=== PATIENT | male | born 1950 | race African-American/Black ===

== ENCOUNTER 2016-07-16 17:20 | Inpatient (IN) | payer MEDICARE ==
[~2016-07-16] VITALS: Ht 190.5 cm; Wt 95.3 kg
[~2016-07-16 17:20] MED LIST: ASPI-482 PO; ATEN25TA PO; ATOR40TA59 PO; DORZ10DR7 EACHEYE; HYDR-971 PO; HYDR25TA9 PO; LATA2.5D3 EACHEYE; MULT1TAB97 PO; SIMV5TAB PO; VARE1TAB5 PO
--- NOTE | 2016-07-16 18:00 | RAD ---
PROCEDURE CT head without intravenous contrast. HISTORY Right arm tingling and weakness. TECHNIQUE Axial images are obtained of the head from the skull base through the vertex without IV contrast Exposure: One or more of the following individualized dose reduction techniques were utilized for this examination: 1. Automated exposure control. 2. Adjustment of the mA and/or kV according to patient size. 3. Use of iterative reconstruction technique. COMPARISON None. FINDINGS The ventricles are appropriate in size, shape, and location for the patient's age.No obvious intracranial mass, mass-effect, midline shift, hemorrhage or obvious acute infarction is identified.Basilar cisterns are patent. Bone windows demonstrate no acute calvarial abnormality.The visualized paranasal sinuses appear clear. IMPRESSION No acute intracranial process. Please note that CT can be relatively insensitive to acute ischemic infarction for up to 24 hours after symptom onset. Electronically signed by: Ricardo Bowie MD (Jul 16, 2016 17:59:44)
[2016-07-16] MEDS ORDERED: ASPIRIN ENTERIC COATED 325 MG TABLET.DR. PO ONE (18:15)
--- NOTE | 2016-07-16 18:19 | PHYS DOC ---
Past Medical History Past Medical History: Diabetes-Type II, Glaucoma, Hypertension Past Surgical History: No Surgical History Smoking: Quit Greater Than 1 Year Alcohol Use: None Drug Use: None Adult General HPI HPI Patient is a 66 year old male who presents with right upper extremity weakness that started about 4:30 this evening when he got home from work. He noted severe weakness throughout his in entirety of his upper extremity. This lasted minutes, and then began to resolve. He currently has weakness mainly in his hand and forearm. He denies sensory changes. He denies headache, vision changes , chest pain, palpitations, dyspnea, fever or chills, numbness, tingling, speech changes, difficulty swallowing. He denies dizziness. Review of Systems Review of Systems Constitutional: Denies fever or chills [] Eyes: Denies change in visual acuity, redness, or eye pain [] HENT: Denies nasal congestion or sore throat [] Respiratory: Denies cough or shortness of breath [] Cardiovascular: No additional information not addressed in HPI [] GI: Denies abdominal pain, nausea, vomiting, bloody stools or diarrhea [] : Denies dysuria or hematuria [] Musculoskeletal: Denies back pain or joint pain [] Integument: Denies rash or skin lesions [] Neurologic: Denies headache or sensory changes [] Endocrine: Denies polyuria or polydipsia [] Current Medications Current Medications Current Medications Medications (Trade) Dose Ordered Sig/[facility] Start Time Stop Time Status Last Admin Dose Admin Aspirin (Ecotrin) 325 mg 1X ONCE 07/16/16 18:15 07/16/16 18:16 DC 07/16/16 18:24 325 MG Allergies Allergies Allergies Coded Allergies Type Severity Reaction Last Updated Verified No Known Drug Allergies 05/13/15 No Physical Exam Physical Exam Constitutional: Well developed, well nourished, no acute distress, non-toxic appearance. [] HENT: Normocephalic, atraumatic, bilateral external ears normal, oropharynx moist, no oral exudates, nose normal. [] Eyes: PERRLA, EOMI, conjunctiva normal, no discharge. [] Neck: Normal range of motion, supple. [] Cardiovascular:Heart rate regular rhythm [] Lungs & Thorax: Bilateral breath sounds clear to auscultation [] Abdomen: Bowel sounds normal, soft, no tenderness. [] Skin: Warm, dry, no erythema, no rash. [] Back: Normal range of motion. [] Extremities: No tenderness, ROM intact, no edema. [] Neurologic: Alert and oriented X 3, normal motor function other than mild weakness in RUE compared to LUE, normal sensory function, no focal deficits noted, cranial nerves II through XII intact, no extremity drift. [] Psychologic: Affect normal, judgement normal, mood normal. [] Current Patient Data Vital Signs Vital Signs Date Time Temp Pulse Resp B/P Pulse Ox O2 Delivery O2 Flow Rate FiO2 07/16/16 17:38 97.8 61 18 149/81 98 Room Air 97.8 Lab Values Laboratory Tests Test 07/16/16 17:58 White Blood Count 4.6x10^3/uL (4.0-11.0) Red Blood Count 4.69x10^6/uL (4.30-5.70) Hemoglobin 12.9g/dL (13.0-17.5) L Hematocrit 39.3% (39.0-53.0) Mean Corpuscular Volume 84fL (79-100) Mean Corpuscular Hemoglobin 28pg (25-35) Mean Corpuscular Hemoglobin Concent 33g/dL (31-37) Red Cell Distribution Width 14.7% (11.5-14.5) H Platelet Count 223x10^3/uL (140-400) Neutrophils (%) (Auto) 54% (31-73) Lymphocytes (%) (Auto) 31% (24-48) Monocytes (%) (Auto) 12% (0-9) H Eosinophils (%) (Auto) 3% (0-3) Basophils (%) (Auto) 1% (0-3) Neutrophils # (Auto) 2.5x10^3uL (1.8-7.7) Lymphocytes # (Auto) 1.4x10^3/uL (1.0-4.8) Monocytes # (Auto) 0.5x10^3/uL (0.0-1.1) Eosinophils # (Auto) 0.1x10^3/uL (0.0-0.7) Basophils # (Auto) 0.0x10^3/uL (0.0-0.2) Sodium Level 143mmol/L (136-145) Potassium Level 3.2mmol/L (3.5-5.1) L Chloride Level 105mmol/L (98-107) Carbon Dioxide Level 27mmol/L (21-32) Anion Gap 11 (6-14) Blood Urea Nitrogen 15mg/dL (8-26) Creatinine 0.9mg/dL (0.7-1.3) Estimated GFR (Cockcroft-Gault) 102.5 Glucose Level 106mg/dL (70-99) H Calcium Level 9.3mg/dL (8.5-10.1) Laboratory Tests 07/16/16 17:58 Laboratory Tests 07/16/16 17:58 EKG EKG EKG as interpreted by me as normal sinus rhythm, rate 58, no ST-T changes, normal intervals, no ectopy Radiology/Procedures Radiology/Procedures Head CT without contrast IMPRESSION No acute intracranial process. Please note that CT can be relatively insensitive to acute ischemic infarction for up to 24 hours after symptom onset. Electronically signed by: Ricardo Bowie MD (Jul 16, 2016 17:59:44) Course & Med Decision Making Course & Med Decision Making Pertinent Labs and Imaging studies reviewed. (See chart for details) Exam and history are concerning for stroke versus TIA. NIHSS of 0. Will admit for further workup. Aspirin given. He is not a TPA candidate due to improvement of his symptoms during his short timeline. Discussed case with Dr. Spears, who will admit. Discussed case with Dr. Tovar, neurology, who recommends starting on Plavix. Dragon Disclaimer Dragon Disclaimer This electronic medical record was generated, in whole or in part, using a voice recognition dictation system. Departure Departure Impression: Primary Impression: Right arm weakness Disposition: ADMITTED INPATIENT Condition: STABLE Referrals: KEVON MACIEL (PCP) Nel MURRAY MD Jul 16, 2016 18:19
[2016-07-16 18:22] LABS: BASO % 1 % (0-3); EOS % 3 % (0-3); HEMATOCRIT 39.3 % (39.0-53.0); HEMOGLOBIN 12.9 g/dL (13.0-17.5); LYMPH # 1.4 x10^3/uL (1.0-4.8); LYMPH % 31 % (24-48); MEAN CORPUSCULAR HEMOGLOBIN 28 pg (25-35); MEAN CORPUSCULAR HGB CONC 33 g/dL (31-37); MEAN CORPUSCULAR VOLUME 84 fL (79-100); MONO % 12 % (0-9); NEUT % 54 % (31-73); PLATELET COUNT 223 x10^3/uL (140-400); RED BLOOD COUNT 4.69 x10^6/uL (4.30-5.70); RED CELL DISTRIBUTION WIDTH 14.7 % (11.5-14.5); WHITE BLOOD COUNT 4.6 x10^3/uL (4.0-11.0)
[2016-07-16 18:29] LABS: CALCIUM 9.3 mg/dL (8.5-10.1); CREATININE 0.9 mg/dL (0.7-1.3); GFR 102.5; POTASSIUM 3.2 mmol/L (3.5-5.1)
[2016-07-16] MEDS ORDERED: ONDANSETRON PF 4 MG/2 ML VIAL. IV PRN ×2 (18:45→19:15)
[2016-07-16] MEDS ORDERED: ACETAMINOPHEN 325 MG TABLET. PO PRN ×2 (18:45→19:15)
[2016-07-16] MEDS ORDERED: CLOPIDOGREL BISULFATE 75 MG TABLET PO ONE (19:00)
[2016-07-16] MEDS ORDERED: hydrALAZINE 20 MG/ML VIAL. IVP PRN (19:15)
[2016-07-16] MEDS ORDERED: HYDROCODONE/APAP 5/325MG TABLET. PO PRN (19:15)
[2016-07-16] MEDS ORDERED: DEXTROSE 50% 25 GM / 50ML DISP.SYRIN. IV PRN (19:15)
--- NOTE | 2016-07-16 19:17 | PDOC1 ---
History and Physical Date of Admission Date of Admission 07/16/16 Identification/Chief Complaint Chief Complaint right arm weakness Problems: Source Source: Chart review, Patient History of Present Illness History of Present Illness HPI Patient is a 66 year old male who presents with right upper extremity weakness that started about 4:30 this evening when he got home from work. he had little nausea before. He was taking a shower at 4.30pm, feels right arm weakness, especially right hand. He denies other neurologic symptoms, no vision hearing change, no numbness or headache. Now strength is better, but right hand still weak. head CT neg. takes baby asa Past Medical History Cardiovascular: HTN Endocrine: Diabetes Past Surgical History Past Surgical History: No pertinent history Family History Family History mom had stroke Social History Smoke: Quit ALCOHOL: social Drugs: None Current Problem List Problem List Problems Medical Problems: (1) Right arm weakness Status: Acute Current Medications Current Medications Current Medications Medications (Trade) Dose Ordered Sig/[facility] Start Time Stop Time Status Last Admin Dose Admin Acetaminophen (Tylenol) 650 mg PRN Q4HRS PRN 07/16/16 18:45 07/17/16 18:44 Aspirin (Ecotrin) 325 mg 1X ONCE 07/16/16 18:15 07/16/16 18:16 DC 07/16/16 18:24 325 MG Clopidogrel Bisulfate (Plavix) 75 mg 1X ONCE 07/16/16 19:00 07/16/16 19:01 DC 07/16/16 19:06 75 MG Ondansetron HCl (Zofran) 4 mg PRN Q8HRS PRN 07/16/16 18:45 07/17/16 18:44 Allergies Allergies Allergies Coded Allergies Type Severity Reaction Last Updated Verified No Known Drug Allergies 05/13/15 No ROS Review of System CONSTITUTIONAL: No fever or chills EYES: No recent changes SKIN: No rash or itching CARDIOVASCULAR: No chest pain, syncope, palpitations, or edema RESPIRATORY: No SOB or cough GASTROINTESTINAL: No nausea, vomiting or abdominal pain NEUROLOGICAL: No headaches or weakness ENDOCRINE: No cold or heat intolerance GENITOURINARY: No urgency or frequency of urination MUSCULOSKELETAL: No back pain or joint pain LYMPHATICS: No enlarged lymph nodes PSYCHIATRIC: No anxiety or depression Physical Exam Physical Exam GEN.: No apparent distress. Alert and oriented. HEENT: Head is normocephalic, atraumatic NECK: Supple. LUNGS: Clear to auscultation. HEART: RRR, S1, S2 present. Peripheral pulses intact ABDOMEN: Soft, nontender. Positive bowel sounds. EXTREMITIES: Without any cyanosis. right hand strength 3/5 NEUROLOGIC: Normal speech, normal tone PSYCHIATRIC: Normal affect, normal mood. SKIN: No ulcerations Vitals Vitals Vital Signs Date Time Temp Pulse Resp B/P Pulse Ox O2 Delivery O2 Flow Rate FiO2 07/16/16 18:45 64 18 146/82 100 Room Air 07/16/16 17:38 97.8 97.8 Labs Labs Laboratory Tests Test 07/16/16 17:58 White Blood Count 4.6x10^3/uL (4.0-11.0) Red Blood Count 4.69x10^6/uL (4.30-5.70) Hemoglobin 12.9g/dL (13.0-17.5) Hematocrit 39.3% (39.0-53.0) Mean Corpuscular Volume 84fL (79-100) Mean Corpuscular Hemoglobin 28pg (25-35) Mean Corpuscular Hemoglobin Concent 33g/dL (31-37) Red Cell Distribution Width 14.7% (11.5-14.5) Platelet Count 223x10^3/uL (140-400) Neutrophils (%) (Auto) 54% (31-73) Lymphocytes (%) (Auto) 31% (24-48) Monocytes (%) (Auto) 12% (0-9) Eosinophils (%) (Auto) 3% (0-3) Basophils (%) (Auto) 1% (0-3) Neutrophils # (Auto) 2.5x10^3uL (1.8-7.7) Lymphocytes # (Auto) 1.4x10^3/uL (1.0-4.8) Monocytes # (Auto) 0.5x10^3/uL (0.0-1.1) Eosinophils # (Auto) 0.1x10^3/uL (0.0-0.7) Basophils # (Auto) 0.0x10^3/uL (0.0-0.2) Sodium Level 143mmol/L (136-145) Potassium Level 3.2mmol/L (3.5-5.1) Chloride Level 105mmol/L (98-107) Carbon Dioxide Level 27mmol/L (21-32) Anion Gap 11 (6-14) Blood Urea Nitrogen 15mg/dL (8-26) Creatinine 0.9mg/dL (0.7-1.3) Estimated GFR (Cockcroft-Gault) 102.5 Glucose Level 106mg/dL (70-99) Calcium Level 9.3mg/dL (8.5-10.1) Laboratory Tests Test 07/16/16 17:58 White Blood Count 4.6x10^3/uL (4.0-11.0) Red Blood Count 4.69x10^6/uL (4.30-5.70) Hemoglobin 12.9g/dL (13.0-17.5) Hematocrit 39.3% (39.0-53.0) Mean Corpuscular Volume 84fL (79-100) Mean Corpuscular Hemoglobin 28pg (25-35) Mean Corpuscular Hemoglobin Concent 33g/dL (31-37) Red Cell Distribution Width 14.7% (11.5-14.5) Platelet Count 223x10^3/uL (140-400) Neutrophils (%) (Auto) 54% (31-73) Lymphocytes (%) (Auto) 31% (24-48) Monocytes (%) (Auto) 12% (0-9) Eosinophils (%) (Auto) 3% (0-3) Basophils (%) (Auto) 1% (0-3) Neutrophils # (Auto) 2.5x10^3uL (1.8-7.7) Lymphocytes # (Auto) 1.4x10^3/uL (1.0-4.8) Monocytes # (Auto) 0.5x10^3/uL (0.0-1.1) Eosinophils # (Auto) 0.1x10^3/uL (0.0-0.7) Basophils # (Auto) 0.0x10^3/uL (0.0-0.2) Sodium Level 143mmol/L (136-145) Potassium Level 3.2mmol/L (3.5-5.1) Chloride Level 105mmol/L (98-107) Carbon Dioxide Level 27mmol/L (21-32) Anion Gap 11 (6-14) Blood Urea Nitrogen 15mg/dL (8-26) Creatinine 0.9mg/dL (0.7-1.3) Estimated GFR (Cockcroft-Gault) 102.5 Glucose Level 106mg/dL (70-99) Calcium Level 9.3mg/dL (8.5-10.1) VTE Prophylaxis Ordered VTE Prophylaxis Devices: Yes VTE Pharmacological Prophylaxi: Yes Assessment/Plan Assessment/Plan 1. right arm/hand weakness, likely 2/2 stroke 2. dm2 3. htn 4. hld 5. glaucoma plan: 1. neuro consult 2. plavix check lipid panel home meds cont 3. brain mri, carotid US, echo OT dvt ppx check hba1c SSI TERESA BERNABE MD Jul 16, 2016 19:16
[2016-07-16] MEDS ORDERED: METF500T4 PO (20:13)
[2016-07-16] MEDS ORDERED: LEVO50TA5 PO (20:13)
[2016-07-16] MEDS ORDERED: LEVO100T5 PO (20:15)
[2016-07-16 20:47] VITALS: BP 141/83
[2016-07-16] MEDS: INSULIN ASPART 300 UNITS/3 ML INSULN.PEN SQ SCH (21:00)
--- NOTE | 2016-07-16 21:46 | PDOC2 ---
NEUROLOGY CONSULT Date of Admission Date of Admission Full Report Dictated DATE: 07/16/16 TIME: 21:43 Current Medications Current Medications Current Medications Aspirin (Ecotrin) 325 mg 1X ONCE PO Last administered on 07/16/16t 18:24; Start 07/16/16 at 18:15; Stop 07/16/16 at 18:16; Status DC Clopidogrel Bisulfate (Plavix) 75 mg 1X ONCE PO Last administered on t 19:06; Start 07/16/16 at 19:00; Stop 07/16/16 at 19:01; Status DC Ondansetron HCl (Zofran) 4 mg PRN Q8HRS PRN IV NAUSEA/VOMITING; Start 07/16/16 at 18:45; Stop 07/16/16 at 19:17; Status DC Acetaminophen (Tylenol) 650 mg PRN Q4HRS PRN PO FEVER; Start 07/16/16 at 18:45 ; Stop 07/16/16 at 19:17; Status DC Atenolol (Tenormin) 25 mg DAILY PO ; Start 07/17/16 at 09:00 Atorvastatin Calcium (Lipitor) 40 mg QHS PO ; Start 07/16/16 at 21:00 Dorzolamide/ Timolol (Cosopt) 1 drop BID OU ; Start 07/16/16 at 21:00 Hydrochlorothiazide (Hydrodiuril) 25 mg DAILY PO ; Start 07/17/16 at 09:00 Acetaminophen/ Hydrocodone Bitart (Lortab 5/325) 1 tab PRN Q6HRS PRN PO PAIN; Start 07/16/16 at 19:15 Latanoprost (Xalatan) 1 drop QHS OU ; Start 07/16/16 at 21:00 Multivitamins/ Calcium (Thera M Plus) 1 tab DAILY PO ; Start 07/17/16 at 09:00 Clopidogrel Bisulfate (Plavix) 75 mg DAILYWBKFT PO ; Start 07/17/16 at 08:00 Acetaminophen (Tylenol) 650 mg PRN Q6HRS PRN PO MILD PAIN / TEMP; Start at 19:15 Ondansetron HCl (Zofran) 4 mg PRN Q6HRS PRN IV NAUSEA/VOMITING; Start 07/16/16 at 19:15 Hydralazine HCl (Apresoline) 10 mg PRN Q4HRS PRN IVP ELEVATED BP, SEE COMMENTS ; Start 07/16/16 at 19:15 Insulin Aspart (Novolog) 0-9 UNITS QIDACHS SQ ; Start 07/16/16 at 21:00 Dextrose 12.5 gm PRN Q15MIN PRN IV SEE COMMENTS; Start 07/16/16 at 19:15 Enoxaparin Sodium (Lovenox 40mg Syringe) 40 mg Q24H SQ ; Start 07/16/16 at 21:00 Active Scripts Active [place] 5-325 Tablet (Acetaminophen/Hydrocodone Bitart) 1 Each Tablet 1 Tab PO PRN Q6HRS PRN Reported Levothyroxine Sodium 100 Mcg Tablet 1 Tab PO DAILY Metformin Hcl 500 Mg Tablet 1 Tab PO BID Latanoprost 2.5 Ml Drops 1 Drop EACHEYE QHS Dorzolamide-Timolol Eye Drops (Dorzolamide Hcl/Timolol Maleat) 10 Ml Drops 1 Drop EACHEYE BID Atorvastatin Calcium 40 Mg Tablet 1 Tab PO DAILY Aspir 81 (Aspirin) 81 Mg Tablet. 1 Tab PO DAILY Daily Multiple Vitamin (Multivitamin) 1 Each Tablet 1 Each PO DAILY Hydrochlorothiazide Tablet (Hydrochlorothiazide) 25 Mg Tablet 25 Mg PO DAILY Atenolol 25 Mg Tablet 25 Mg PO DAILY Allergies Allergies: Coded Allergies: No Known Drug Allergies (Unverified , 05/13/15) Vitals VITALS Vital Signs Date Time Temp Pulse Resp B/P Pulse Ox O2 Delivery O2 Flow Rate FiO2 07/16/16 20:47 96.3 63 18 141/83 Room Air 96.3 07/16/16 18:45 100 Labs Labs Laboratory Tests Test 07/16/16 17:58 07/16/16 20:42 White Blood Count 4.6x10^3/uL (4.0-11.0) Red Blood Count 4.69x10^6/uL (4.30-5.70) Hemoglobin 12.9g/dL (13.0-17.5) Hematocrit 39.3% (39.0-53.0) Mean Corpuscular Volume 84fL (79-100) Mean Corpuscular Hemoglobin 28pg (25-35) Mean Corpuscular Hemoglobin Concent 33g/dL (31-37) Red Cell Distribution Width 14.7% (11.5-14.5) Platelet Count 223x10^3/uL (140-400) Neutrophils (%) (Auto) 54% (31-73) Lymphocytes (%) (Auto) 31% (24-48) Monocytes (%) (Auto) 12% (0-9) Eosinophils (%) (Auto) 3% (0-3) Basophils (%) (Auto) 1% (0-3) Neutrophils # (Auto) 2.5x10^3uL (1.8-7.7) Lymphocytes # (Auto) 1.4x10^3/uL (1.0-4.8) Monocytes # (Auto) 0.5x10^3/uL (0.0-1.1) Eosinophils # (Auto) 0.1x10^3/uL (0.0-0.7) Basophils # (Auto) 0.0x10^3/uL (0.0-0.2) Sodium Level 143mmol/L (136-145) Potassium Level 3.2mmol/L (3.5-5.1) Chloride Level 105mmol/L (98-107) Carbon Dioxide Level 27mmol/L (21-32) Anion Gap 11 (6-14) Blood Urea Nitrogen 15mg/dL (8-26) Creatinine 0.9mg/dL (0.7-1.3) Estimated GFR (Cockcroft-Gault) 102.5 Glucose Level 106mg/dL (70-99) Calcium Level 9.3mg/dL (8.5-10.1) Glucose (Fingerstick) 76mg/dL (70-99) Laboratory Tests Test 07/16/16 17:58 07/16/16 20:42 White Blood Count 4.6x10^3/uL (4.0-11.0) Red Blood Count 4.69x10^6/uL (4.30-5.70) Hemoglobin 12.9g/dL (13.0-17.5) Hematocrit 39.3% (39.0-53.0) Mean Corpuscular Volume 84fL (79-100) Mean Corpuscular Hemoglobin 28pg (25-35) Mean Corpuscular Hemoglobin Concent 33g/dL (31-37) Red Cell Distribution Width 14.7% (11.5-14.5) Platelet Count 223x10^3/uL (140-400) Neutrophils (%) (Auto) 54% (31-73) Lymphocytes (%) (Auto) 31% (24-48) Monocytes (%) (Auto) 12% (0-9) Eosinophils (%) (Auto) 3% (0-3) Basophils (%) (Auto) 1% (0-3) Neutrophils # (Auto) 2.5x10^3uL (1.8-7.7) Lymphocytes # (Auto) 1.4x10^3/uL (1.0-4.8) Monocytes # (Auto) 0.5x10^3/uL (0.0-1.1) Eosinophils # (Auto) 0.1x10^3/uL (0.0-0.7) Basophils # (Auto) 0.0x10^3/uL (0.0-0.2) Sodium Level 143mmol/L (136-145) Potassium Level 3.2mmol/L (3.5-5.1) Chloride Level 105mmol/L (98-107) Carbon Dioxide Level 27mmol/L (21-32) Anion Gap 11 (6-14) Blood Urea Nitrogen 15mg/dL (8-26) Creatinine 0.9mg/dL (0.7-1.3) Estimated GFR (Cockcroft-Gault) 102.5 Glucose Level 106mg/dL (70-99) Calcium Level 9.3mg/dL (8.5-10.1) Glucose (Fingerstick) 76mg/dL (70-99) Assessment/Plan Assessment/Plan Carroll Bauer is a 66-year-old man who suffered a stroke of his left hemisphere causing mild right hemiparesis. Symptoms largely resolved over the course of an hour. He has residual slight weakness in the right hand and diminished coordination with fine motor in the right hand. Stroke investigation has been initiated. Aspirin has been switched to Plavix. A fasting lipid profile will be obtained. MRI, carotid Doppler and echocardiogram will be ordered. NEPTALI CONNER MD Jul 16, 2016 21:46
[2016-07-16] MEDS: ATORVASTATIN CALCIUM 40 MG TABLET. PO SCH (21:57)
[2016-07-16] MEDS: ENOXAPARIN 40 MG/0.4 ML DISP.SYRIN. SQ SCH (21:58)
[2016-07-16] MEDS: DORZOLAMIDE/TIMOLOL 2%/0.5% OPHTH SOLUTION 10ML BOTTLE. OU SCH (21:58)
[2016-07-16] MEDS: LATANOPROST 0.005% OPHTH SOLUTION 2.5ML BOTTLE. OU SCH (21:58)
[2016-07-16 23:13] VITALS: BP 118/73
[2016-07-17 03:23] VITALS: BP 111/59
[2016-07-17 03:58] LABS: BASO % 1 % (0-3); EOS % 3 % (0-3); HEMATOCRIT 37.8 % (39.0-53.0); HEMOGLOBIN 12.7 g/dL (13.0-17.5); LYMPH % 40 % (24-48); MEAN CORPUSCULAR HEMOGLOBIN 28 pg (25-35); MEAN CORPUSCULAR HGB CONC 34 g/dL (31-37); MEAN CORPUSCULAR VOLUME 84 fL (79-100); MONO % 11 % (0-9); NEUT % 46 % (31-73); PLATELET COUNT 205 x10^3/uL (140-400); RED BLOOD COUNT 4.51 x10^6/uL (4.30-5.70); RED CELL DISTRIBUTION WIDTH 14.5 % (11.5-14.5); WHITE BLOOD COUNT 4.9 x10^3/uL (4.0-11.0)
[2016-07-17 04:19] LABS: CALCIUM 8.9 mg/dL (8.5-10.1); CREATININE 0.8 mg/dL (0.7-1.3); GFR 117.4; POTASSIUM 3.2 mmol/L (3.5-5.1)
[2016-07-17 04:25] LABS: CHOLESTEROL/HDL RATIO 2.9
[2016-07-17 07:00] VITALS: BP 112/71
[2016-07-17] MEDS: INSULIN ASPART 300 UNITS/3 ML INSULN.PEN SQ SCH ×4 (07:30→21:00)
--- NOTE | 2016-07-17 07:54 | RAD ---
Carotid ultrasound, 07/16/2016: History: Right arm weakness Duplex evaluation of the carotid arteries in the neck was performed including grayscale, color-flow and spectral Doppler analysis. There is mild intimal thickening in the common carotid arteries and mild smooth plaquing at the bifurcations. The Doppler data obtained from the bifurcations reveals no significant focal velocity acceleration to suggest a hemodynamically significant carotid stenosis. The peak systolic velocity in the right internal carotid artery is 98 cm/s and on the left is 96% centimeters per second. Antegrade flow is present in both vertebral arteries in the neck. IMPRESSION: Mild atherosclerotic plaquing at both carotid bifurcations with underlying luminal narrowing in the 0-50% diameter range bilaterally. Note: Stenosis calculations for CT, MRA and conventional angiography are based upon determination of the distal ICA diameter in accordance with the NASCET methodology. Stenosis calculations for Doppler studies are derived from validated velocity criteria which are known to correlate with NASCET methodology of determining stenosis.
--- NOTE | 2016-07-17 08:30 | CONS ---
DATE OF CONSULTATION: 07/16/2016 REFERRING PHYSICIAN: Dr. Bernabe. REASON FOR CONSULTATION: Stroke, left hemisphere. HISTORY OF PRESENT ILLNESS: The patient is a very pleasant, 66-year-old man, who presented to the Emergency Room earlier today. Symptoms began about an hour prior to presentation to the Emergency Room. He developed weakness of his right arm where it was difficult to move. This quickly resolved to only involve his left hand, which was gradually improving in the Emergency Room. Investigation in the Emergency Room revealed a negative CAT scan. Rhythm did not reveal atrial fibrillation. He takes aspirin on a regular basis, so had failed aspirin. The Emergency Room physician elected not to proceed with TPA because he was rapidly improving. The patient did not complain of any headache or visual change. There was no trouble with the legs or the left arm. He did not complain of any numbness. He was able to walk without difficulty. He was able to speak and comprehend without any problem. PAST MEDICAL HISTORY: 1. He reports being diagnosed with diabetes about a year ago. 2. Glaucoma. 3. Hypertension. ALLERGIES: No known allergies to drugs. MEDICATIONS PRIOR TO ADMISSION: Hydrocodone/acetaminophen every 6 hours as needed, aspirin 81 mg, atenolol 25 mg, atorvastatin 40 mg but he admits to not taking it regularly, dorzolamide/timolol ophthalmic twice per day to the eyes, hydrochlorothiazide 25 mg, latanoprost ophthalmic at night to each eye, levothyroxine 100 mcg, metformin 500 mg twice per day, and multivitamins. FAMILY HISTORY: His mother of a stroke at around 76 years. His father with complications of diabetes in his late 70s. NEPTALI CONNER MD DR: TRINH/edmond JOB#: [id number] / [id number] EDUARDO Davidson MD, LUDA BERNABE, NEPTALI HESTER MD, MD
--- NOTE | 2016-07-17 08:54 | CONS ---
DATE OF CONSULTATION: 07/16/2016 ADDENDUM SOCIAL HISTORY: He is and has 3 children and 7 grandchildren. He retired from [employer] at 55 years. 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 He quit smoking and drinking and recreational drugs in 2012. REVIEW OF SYSTEMS: He does not complain of any headache. There has been no change of vision or hearing. He has had no cognitive or speech changes. He has been able to talk and swallow without difficulty. There has been no shortness of breath, cough or cold. He denies chest or abdominal pain. He does not have any bone or joint pain other than his left foot with some plantar fasciitis. He has had no fever or rash. He denies any gastrointestinal or genitourinary complaints. He does not complain of numbness. He has some weakness of his right hand. He has had no trouble with walking or balance. He denies any psychiatric symptoms. He does not bruise or bleeding easily. He has no swelling. PHYSICAL EXAMINATION: VITAL SIGNS: The blood pressure was 141/83, pulse 63, respirations 18, temperature 96.3 degrees Fahrenheit. Oximetry was 100% on room air. His weight was 210 pounds and his height was 75 inches, with a calculated body mass index of 26.2. GENERAL: He was alert, awake, and cooperative. Speech was of normal flow and content and was well enunciated. He had a good fund of recent and remote knowledge. Attention and concentration were intact. He appeared well groomed and well nourished. He was fully oriented. NEUROLOGIC: Examination of the cranial nerves revealed visual forte were full to confrontation. Extraocular movements were intact. The eyes were conjugate. Pursuit movements were smooth and saccadic eye movements were without dysmetria. Pupils were 3 mm and reacted. Muscles of mastication and facial expression were powerful symmetrically. Facial sensation was normal. Hearing was intact to finger rub. The palate arched symmetrically and the tongue was midline with full range of motion. Sternocleidomastoid and trapezius were powerful. Muscle bulk and tone was normal. There was no arm drift or abnormal movement. Power: There was no leg drift. The power was full in the right upper and both lower extremities. Power was also full in the right arm with the elbow and shoulder. The weakness was with finger abduction, finger extension, and finger flexion. Power was 5-/5. Reflexes were 1/4 in the upper extremities and knees and absent at the ankles. The toes were downgoing. Coordination testing with [id number], [id number], fine motor and rapid alternating movements was well performed except in the right hand with diminished fine motor movement. Sensory exam was intact to pain, light touch, proprioception, graphesthesia, cold thermal and vibration. There was no extinction to double simultaneous stimulation. His gait was normal based and steady. He was able to heel, toe, and tandem walk. The Romberg stance was negative. Auscultation of the carotid arteries did not reveal a bruit. Heart rhythm was regular without a murmur. Peripheral pulses were symmetric in the upper and lower extremities. There was no edema or cyanosis. REVIEW OF LABORATORY DATA: CBC revealed a normal white blood cell count. Hemoglobin was low at 12.9, hematocrit normal at 39.3, and normal platelet count. Chemistries revealed normal sodium, potassium was low at 3.2, and glucose elevated at 106. Calcium was normal. IMAGING: A CT scan of the brain was performed revealing no acute intracranial process. Carotid Doppler has been performed, but the result is pending. IMPRESSION: The patient is a pleasant 66-year-old man, who developed the sudden onset of weakness of the right arm. This largely resolved with only minimal weakness in the left hand and slightly diminished coordination with fine motor movement. Prognosis for recovery is quite favorable. This likely represents a small lacunar type stroke. RECOMMENDATIONS: We need to determine if there are risk factors that can be addressed. We can check a hemoglobin A1c to see the glucose control. We will obtain a fasting lipid profile to see if the LDL is less than 70. We will see if there is carotid blockage with a carotid Doppler. We need an echocardiogram to look for a cardioembolic source. We will obtain an MRI to better evaluate for stroke. Plavix has been initiated as replacement of aspirin as he has failed aspirin for stroke prevention. I appreciate being involved in his care. NEPTALI CNONER MD DR: TRINH/edmond JOB#: [id number] / [id number]
[2016-07-17] MEDS ORDERED: POTASSIUM CHLORIDE 20 MEQ TABLET.ER. PO ONE (09:30)
[2016-07-17] MEDS: DORZOLAMIDE/TIMOLOL 2%/0.5% OPHTH SOLUTION 10ML BOTTLE. OU SCH ×2 (10:05→20:04)
[2016-07-17] MEDS: HYDROCHLOROTHIAZIDE 25 MG TABLET PO SCH (10:07)
[2016-07-17] MEDS: ATENOLOL 25 MG TABLET PO SCH (10:07)
[2016-07-17] MEDS: CLOPIDOGREL BISULFATE 75 MG TABLET PO SCH (10:07)
[2016-07-17] MEDS: MULTIVITAMIN with MINERAL TABLET. PO SCH (10:08)
[2016-07-17 11:16] VITALS: BP 105/59
--- NOTE | 2016-07-17 12:16 | EKG ---
[facility] [address] [place] [address] Test Date: 2016-07-16 Test Time: 17:53:44 Pat Name: YAMILETH RIDLEY Department: Room: 646 1 Gender: M Home Care Scheduler: : 1950 Requested By: Nel MURRAY Order Number: [id number] Reading MD: Stacy Perez Measurements Intervals [place] Rate: 59 P: 54 CT: 188 QRS: -1 QRSD: 86 T: 29 QT: 392 QTc: 392 Interpretive Statements SINUS RHYTHM LEFTWARD AXIS OTHERWISE NORMAL ECG RI6.01 Unconfirmed report No previous ECG available for comparison Electronically Signed On 07-18-2016 20:56:19 [employer]GET[employer]LES COOK by Stacy Perez
--- NOTE | 2016-07-17 14:45 | PDOC ---
PROGRESS NOTES Chief Complaint Chief Complaint 1. right arm/hand weakness, likely 2/2 stroke 2. dm2 3. htn 4. hld 5. glaucoma 6. hypokalemia plan: 1. neuro consulted 2. plavix check lipid panel home meds cont 3. brain mri, carotid US, echo OT dvt ppx check hba1c SSI dc tmr History of Present Illness History of Present Illness still right hand weakness Vitals Vitals Vital Signs Date Time Temp Pulse Resp B/P Pulse Ox O2 Delivery O2 Flow Rate FiO2 07/17/16 11:16 97.9 75 17 105/59 98 Room Air 97.9 Physical Exam General: Alert, Oriented X3, Cooperative Heart: Regular rate, Normal S1, Normal S2 Lungs: Clear, Wheezing Abdomen: Normal bowel sounds, Soft Extremities: No clubbing, No cyanosis Skin: No rashes Labs LABS Laboratory Tests Test 07/16/16 17:58 07/16/16 20:42 07/17/16 03:00 07/17/16 07:08 White Blood Count 4.6x10^3/uL (4.0-11.0) 4.9x10^3/uL (4.0-11.0) Red Blood Count 4.69x10^6/uL (4.30-5.70) 4.51x10^6/uL (4.30-5.70) Hemoglobin 12.9g/dL (13.0-17.5) 12.7g/dL (13.0-17.5) Hematocrit 39.3% (39.0-53.0) 37.8% (39.0-53.0) Mean Corpuscular Volume 84fL (79-100) 84fL (79-100) Mean Corpuscular Hemoglobin 28pg (25-35) 28pg (25-35) Mean Corpuscular Hemoglobin Concent 33g/dL (31-37) 34g/dL (31-37) Red Cell Distribution Width 14.7% (11.5-14.5) 14.5% (11.5-14.5) Platelet Count 223x10^3/uL (140-400) 205x10^3/uL (140-400) Neutrophils (%) (Auto) 54% (31-73) 46% (31-73) Lymphocytes (%) (Auto) 31% (24-48) 40% (24-48) Monocytes (%) (Auto) 12% (0-9) 11% (0-9) Eosinophils (%) (Auto) 3% (0-3) 3% (0-3) Basophils (%) (Auto) 1% (0-3) 1% (0-3) Neutrophils # (Auto) 2.5x10^3uL (1.8-7.7) 2.3x10^3uL (1.8-7.7) Lymphocytes # (Auto) 1.4x10^3/uL (1.0-4.8) 2.0x10^3/uL (1.0-4.8) Monocytes # (Auto) 0.5x10^3/uL (0.0-1.1) 0.5x10^3/uL (0.0-1.1) Eosinophils # (Auto) 0.1x10^3/uL (0.0-0.7) 0.1x10^3/uL (0.0-0.7) Basophils # (Auto) 0.0x10^3/uL (0.0-0.2) 0.0x10^3/uL (0.0-0.2) Sodium Level 143mmol/L (136-145) 141mmol/L (136-145) Potassium Level 3.2mmol/L (3.5-5.1) 3.2mmol/L (3.5-5.1) Chloride Level 105mmol/L (98-107) 105mmol/L (98-107) Carbon Dioxide Level 27mmol/L (21-32) 27mmol/L (21-32) Anion Gap 11 (6-14) 9 (6-14) Blood Urea Nitrogen 15mg/dL (8-26) 13mg/dL (8-26) Creatinine 0.9mg/dL (0.7-1.3) 0.8mg/dL (0.7-1.3) Estimated GFR (Cockcroft-Gault) 102.5 117.4 Glucose Level 106mg/dL (70-99) 90mg/dL (70-99) Calcium Level 9.3mg/dL (8.5-10.1) 8.9mg/dL (8.5-10.1) Glucose (Fingerstick) 76mg/dL (70-99) 93mg/dL (70-99) Triglycerides Level 68mg/dL (0-150) Cholesterol Level 128mg/dL (0-200) LDL Cholesterol, Calculated 70mg/dL (0-100) VLDL Cholesterol, Calculated 14mg/dL (0-40) HDL Cholesterol 44mg/dL (40-60) Cholesterol/HDL Ratio 2.9 Test 07/17/16 10:41 Glucose (Fingerstick) 130mg/dL (70-99) Review of Systems Review of Systems no fever ,chills, sob or chest pain Assessment and Plan Assessmemt and Plan Problems Medical Problems: (1) Right arm weakness Status: Acute Problems: Comment Review of Relevant I have reviewed the following items daljit (where applicable) has been applied. Labs Laboratory Tests Test 07/16/16 17:58 07/16/16 20:42 07/17/16 03:00 07/17/16 07:08 White Blood Count 4.6x10^3/uL (4.0-11.0) 4.9x10^3/uL (4.0-11.0) Red Blood Count 4.69x10^6/uL (4.30-5.70) 4.51x10^6/uL (4.30-5.70) Hemoglobin 12.9g/dL (13.0-17.5) 12.7g/dL (13.0-17.5) Hematocrit 39.3% (39.0-53.0) 37.8% (39.0-53.0) Mean Corpuscular Volume 84fL (79-100) 84fL (79-100) Mean Corpuscular Hemoglobin 28pg (25-35) 28pg (25-35) Mean Corpuscular Hemoglobin Concent 33g/dL (31-37) 34g/dL (31-37) Red Cell Distribution Width 14.7% (11.5-14.5) 14.5% (11.5-14.5) Platelet Count 223x10^3/uL (140-400) 205x10^3/uL (140-400) Neutrophils (%) (Auto) 54% (31-73) 46% (31-73) Lymphocytes (%) (Auto) 31% (24-48) 40% (24-48) Monocytes (%) (Auto) 12% (0-9) 11% (0-9) Eosinophils (%) (Auto) 3% (0-3) 3% (0-3) Basophils (%) (Auto) 1% (0-3) 1% (0-3) Neutrophils # (Auto) 2.5x10^3uL (1.8-7.7) 2.3x10^3uL (1.8-7.7) Lymphocytes # (Auto) 1.4x10^3/uL (1.0-4.8) 2.0x10^3/uL (1.0-4.8) Monocytes # (Auto) 0.5x10^3/uL (0.0-1.1) 0.5x10^3/uL (0.0-1.1) Eosinophils # (Auto) 0.1x10^3/uL (0.0-0.7) 0.1x10^3/uL (0.0-0.7) Basophils # (Auto) 0.0x10^3/uL (0.0-0.2) 0.0x10^3/uL (0.0-0.2) Sodium Level 143mmol/L (136-145) 141mmol/L (136-145) Potassium Level 3.2mmol/L (3.5-5.1) 3.2mmol/L (3.5-5.1) Chloride Level 105mmol/L (98-107) 105mmol/L (98-107) Carbon Dioxide Level 27mmol/L (21-32) 27mmol/L (21-32) Anion Gap 11 (6-14) 9 (6-14) Blood Urea Nitrogen 15mg/dL (8-26) 13mg/dL (8-26) Creatinine 0.9mg/dL (0.7-1.3) 0.8mg/dL (0.7-1.3) Estimated GFR (Cockcroft-Gault) 102.5 117.4 Glucose Level 106mg/dL (70-99) 90mg/dL (70-99) Calcium Level 9.3mg/dL (8.5-10.1) 8.9mg/dL (8.5-10.1) Glucose (Fingerstick) 76mg/dL (70-99) 93mg/dL (70-99) Triglycerides Level 68mg/dL (0-150) Cholesterol Level 128mg/dL (0-200) LDL Cholesterol, Calculated 70mg/dL (0-100) VLDL Cholesterol, Calculated 14mg/dL (0-40) HDL Cholesterol 44mg/dL (40-60) Cholesterol/HDL Ratio 2.9 Test 07/17/16 10:41 Glucose (Fingerstick) 130mg/dL (70-99) Laboratory Tests Test 07/16/16 17:58 07/16/16 20:42 07/17/16 03:00 07/17/16 07:08 White Blood Count 4.6x10^3/uL (4.0-11.0) 4.9x10^3/uL (4.0-11.0) Red Blood Count 4.69x10^6/uL (4.30-5.70) 4.51x10^6/uL (4.30-5.70) Hemoglobin 12.9g/dL (13.0-17.5) 12.7g/dL (13.0-17.5) Hematocrit 39.3% (39.0-53.0) 37.8% (39.0-53.0) Mean Corpuscular Volume 84fL (79-100) 84fL (79-100) Mean Corpuscular Hemoglobin 28pg (25-35) 28pg (25-35) Mean Corpuscular Hemoglobin Concent 33g/dL (31-37) 34g/dL (31-37) Red Cell Distribution Width 14.7% (11.5-14.5) 14.5% (11.5-14.5) Platelet Count 223x10^3/uL (140-400) 205x10^3/uL (140-400) Neutrophils (%) (Auto) 54% (31-73) 46% (31-73) Lymphocytes (%) (Auto) 31% (24-48) 40% (24-48) Monocytes (%) (Auto) 12% (0-9) 11% (0-9) Eosinophils (%) (Auto) 3% (0-3) 3% (0-3) Basophils (%) (Auto) 1% (0-3) 1% (0-3) Neutrophils # (Auto) 2.5x10^3uL (1.8-7.7) 2.3x10^3uL (1.8-7.7) Lymphocytes # (Auto) 1.4x10^3/uL (1.0-4.8) 2.0x10^3/uL (1.0-4.8) Monocytes # (Auto) 0.5x10^3/uL (0.0-1.1) 0.5x10^3/uL (0.0-1.1) Eosinophils # (Auto) 0.1x10^3/uL (0.0-0.7) 0.1x10^3/uL (0.0-0.7) Basophils # (Auto) 0.0x10^3/uL (0.0-0.2) 0.0x10^3/uL (0.0-0.2) Sodium Level 143mmol/L (136-145) 141mmol/L (136-145) Potassium Level 3.2mmol/L (3.5-5.1) 3.2mmol/L (3.5-5.1) Chloride Level 105mmol/L (98-107) 105mmol/L (98-107) Carbon Dioxide Level 27mmol/L (21-32) 27mmol/L (21-32) Anion Gap 11 (6-14) 9 (6-14) Blood Urea Nitrogen 15mg/dL (8-26) 13mg/dL (8-26) Creatinine 0.9mg/dL (0.7-1.3) 0.8mg/dL (0.7-1.3) Estimated GFR (Cockcroft-Gault) 102.5 117.4 Glucose Level 106mg/dL (70-99) 90mg/dL (70-99) Calcium Level 9.3mg/dL (8.5-10.1) 8.9mg/dL (8.5-10.1) Glucose (Fingerstick) 76mg/dL (70-99) 93mg/dL (70-99) Triglycerides Level 68mg/dL (0-150) Cholesterol Level 128mg/dL (0-200) LDL Cholesterol, Calculated 70mg/dL (0-100) VLDL Cholesterol, Calculated 14mg/dL (0-40) HDL Cholesterol 44mg/dL (40-60) Cholesterol/HDL Ratio 2.9 Test 07/17/16 10:41 Glucose (Fingerstick) 130mg/dL (70-99) Medications Current Medications Aspirin (Ecotrin) 325 mg 1X ONCE PO Last administered on 07/16/16 18:24; Start 07/16/16 at 18:15; Stop 07/16/16 at 18:16; Status DC Clopidogrel Bisulfate (Plavix) 75 mg 1X ONCE PO Last administered on 19:06; Start 07/16/16 at 19:00; Stop 07/16/16 at 19:01; Status DC Ondansetron HCl (Zofran) 4 mg PRN Q8HRS PRN IV NAUSEA/VOMITING; Start 07/16/16 at 18:45; Stop 07/16/16 at 19:17; Status DC Acetaminophen (Tylenol) 650 mg PRN Q4HRS PRN PO FEVER; Start 07/16/16 at 18:45 ; Stop 07/16/16 at 19:17; Status DC Atenolol (Tenormin) 25 mg DAILY PO Last administered on 07/17/16 10:07; Start 07/17/16 at 09:00 Atorvastatin Calcium (Lipitor) 40 mg QHS PO Last administered on 07/16/16 21: 57; Start 07/16/16 at 21:00 Dorzolamide/ Timolol (Cosopt) 1 drop BID OU Last administered on 07/17/16 10: 05; Start 07/16/16 at 21:00 Hydrochlorothiazide (Hydrodiuril) 25 mg DAILY PO Last administered on 10:07; Start 07/17/16 at 09:00 Acetaminophen/ Hydrocodone Bitart (Lortab 5/325) 1 tab PRN Q6HRS PRN PO PAIN; Start 07/16/16 at 19:15 Latanoprost (Xalatan) 1 drop QHS OU Last administered on 07/16/16 21:58; Start 07/16/16 at 21:00 Multivitamins/ Calcium (Thera M Plus) 1 tab DAILY PO Last administered on 10:08; Start 07/17/16 at 09:00 Clopidogrel Bisulfate (Plavix) 75 mg DAILYWBKFT PO Last administered on 10:07; Start 07/17/16 at 08:00 Acetaminophen (Tylenol) 650 mg PRN Q6HRS PRN PO MILD PAIN / TEMP; Start at 19:15 Ondansetron HCl (Zofran) 4 mg PRN Q6HRS PRN IV NAUSEA/VOMITING; Start 07/16/16 at 19:15 Hydralazine HCl (Apresoline) 10 mg PRN Q4HRS PRN IVP ELEVATED BP, SEE COMMENTS ; Start 07/16/16 at 19:15 Insulin Aspart (Novolog) 0-9 UNITS QIDACHS SQ ; Start 07/16/16 at 21:00 Dextrose 12.5 gm PRN Q15MIN PRN IV SEE COMMENTS; Start 07/16/16 at 19:15 Enoxaparin Sodium (Lovenox 40mg Syringe) 40 mg Q24H SQ Last administered on 21:58; Start 07/16/16 at 21:00 Potassium Chloride (Klor-Con) 40 meq 1X ONCE PO Last administered on 12:22; Start 07/17/16 at 09:30; Stop 07/17/16 at 09:31; Status DC Active Scripts Active Landrum 5-325 Tablet (Acetaminophen/Hydrocodone Bitart) 1 Each Tablet 1 Tab PO PRN Q6HRS PRN Reported Levothyroxine Sodium 100 Mcg Tablet 1 Tab PO DAILY Metformin Hcl 500 Mg Tablet 1 Tab PO BID Latanoprost 2.5 Ml Drops 1 Drop EACHEYE QHS Dorzolamide-Timolol Eye Drops (Dorzolamide Hcl/Timolol Maleat) 10 Ml Drops 1 Drop EACHEYE BID Atorvastatin Calcium 40 Mg Tablet 1 Tab PO DAILY Aspir 81 (Aspirin) 81 Mg Tablet.dr 1 Tab PO DAILY Daily Multiple Vitamin (Multivitamin) 1 Each Tablet 1 Each PO DAILY Hydrochlorothiazide Tablet (Hydrochlorothiazide) 25 Mg Tablet 25 Mg PO DAILY Atenolol 25 Mg Tablet 25 Mg PO DAILY Vitals/I & O Vital Sign - Last 24 Hours 07/16/16 07/16/16 07/16/16 07/16/16 17:38 18:15 18:45 20:45 Temp 97.8 97.8 Pulse 61 64 64 Resp 18 18 18 B/P 149/81 153/73 146/82 Pulse Ox 98 100 100 O2 Delivery Room Air Room Air Room Air Room Air 07/16/16 07/16/16 07/17/16 07/17/16 20:47 23:13 03:23 07:00 Temp 96.3 97.7 97.0 97.7 96.3 97.7 97.0 97.7 Pulse 63 60 60 80 Resp B/P 141/83 118/73 111/59 112/71 Pulse Ox 99 100 97 O2 Delivery Room Air Room Air Room Air Room Air 07/17/16 07/17/16 07/17/16 08:00 10:07 11:16 Temp 97.9 97.9 Pulse 80 75 Resp 17 B/P 112/71 105/59 Pulse Ox 98 O2 Delivery Room Air Room Air Intake and Output 07/16/16 07/16/16 07/17/16 15:00 23:00 07:00 Intake Total 720 ml Balance 720 ml TERESA BERNABE MD Jul 17, 2016 14:45
[2016-07-17 14:58] VITALS: BP 105/75
--- NOTE | 2016-07-17 16:16 | RAD ---
PROCEDURE MRI brain without contrast dated 07/17/2016. HISTORY Right-sided numbness for 1 day. TECHNIQUE Routine multiplanar multisequence MR imaging of brain performed. No contrast administered. COMPARISON None. FINDINGS Small wedge-shaped zone of acute diffusion restriction in the left frontal parietal region near the vertex, likely within the precentral gyrus. No additional areas of restricted diffusion abnormality are seen. Ventricles and sulci are within normal limits for age. No midline shift or mass effect. Mild spotty hyperintense FLAIR signal abnormality within the deep/subcortical periventricular white matter. No hemorrhage or extra-axial collection. Posterior fossa and brainstem unremarkable. Major intracranial flow voids are present. Post-contrast imaging was not performed. Mild mucosal thickening bilateral ethmoid air cells and bilateral maxillary sinus. Mastoid air cells are clear. No acute calvarial abnormality. IMPRESSION - Small acute infarct at the high left frontoparietal region, likely within the pre central gyrus. - No acute hemorrhage or mass. - Mild chronic small vessel ischemic changes in the deep/subcortical periventricular white matter. - Mild sinus disease. Electronically signed by: Ricardo Dang (Jul 17, 2016 16:14:47)
[2016-07-17 19:51] VITALS: BP 114/75
[2016-07-17] MEDS: ATORVASTATIN CALCIUM 40 MG TABLET. PO SCH (20:04)
[2016-07-17] MEDS: ENOXAPARIN 40 MG/0.4 ML DISP.SYRIN. SQ SCH (20:04)
[2016-07-17] MEDS: LATANOPROST 0.005% OPHTH SOLUTION 2.5ML BOTTLE. OU SCH (20:04)
--- NOTE | 2016-07-17 21:18 | PDOC ---
PROGRESS NOTES Assessment 1. Stroke-very small and located in the left parietal region per MRI head which I reviewed in detail. This likely accounts for the weakness. His strength is already improving. 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 Finger flexion seems back to normal. 2. Hyperlipidemia-he's been taking Lipitor not quite regularly. The LDL is 70. I suspect if he was to take this medication every single day the LDL would become less than 70. I do not recommend a dosage adjustment. 3. He was taking aspirin regularly. He has failed aspirin therapy. He has been started on Plavix 75 mg daily. 4. Carotid Doppler was performed and did not reveal any critical stenosis. 5. Echocardiogram is pending. Plan 1. We discussed vascular risk factors. The diabetes needs to be well controlled. The high blood pressure needs to be well controlled. He needs to eat a diabetic heart healthy diet. 2. He may be dismissed from a neurologic perspective and receive the echocardiogram as an outpatient this next week. Subjective I feel pretty good. When he tried eating my hands seem to be working a little bit better. I was worried about an aneurysm. I have some relatives that had 1. Objective Vital Signs Date Time Temp Pulse Resp B/P Pulse Ox O2 Delivery O2 Flow Rate FiO2 07/17/16 20:00 Room Air 07/17/16 19:51 97.9 54 20 114/75 99 97.9 Intake and Output 07/17/16 07:00 Intake Total 720 ml Balance 720 ml Intake Oral 720 ml PHYSICAL EXAM He was alert, awake and cooperative. Speech was fluent and clear. Cranial nerves II through XII are intact. Muscle bulk and tone was normal. Power was normal in the left arm. 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 Power was 4+/5. The rest of the arm was fully powerful. Coordination and sensation was intact. Review of Relevant I have reviewed the following items daljit (where applicable) has been applied. Labs Laboratory Tests Test 07/16/16 17:58 07/16/16 20:42 07/17/16 03:00 07/17/16 07:08 White Blood Count 4.6x10^3/uL (4.0-11.0) 4.9x10^3/uL (4.0-11.0) Red Blood Count 4.69x10^6/uL (4.30-5.70) 4.51x10^6/uL (4.30-5.70) Hemoglobin 12.9g/dL (13.0-17.5) 12.7g/dL (13.0-17.5) Hematocrit 39.3% (39.0-53.0) 37.8% (39.0-53.0) Mean Corpuscular Volume 84fL (79-100) 84fL (79-100) Mean Corpuscular Hemoglobin 28pg (25-35) 28pg (25-35) Mean Corpuscular Hemoglobin Concent 33g/dL (31-37) 34g/dL (31-37) Red Cell Distribution Width 14.7% (11.5-14.5) 14.5% (11.5-14.5) Platelet Count 223x10^3/uL (140-400) 205x10^3/uL (140-400) Neutrophils (%) (Auto) 54% (31-73) 46% (31-73) Lymphocytes (%) (Auto) 31% (24-48) 40% (24-48) Monocytes (%) (Auto) 12% (0-9) 11% (0-9) Eosinophils (%) (Auto) 3% (0-3) 3% (0-3) Basophils (%) (Auto) 1% (0-3) 1% (0-3) Neutrophils # (Auto) 2.5x10^3uL (1.8-7.7) 2.3x10^3uL (1.8-7.7) Lymphocytes # (Auto) 1.4x10^3/uL (1.0-4.8) 2.0x10^3/uL (1.0-4.8) Monocytes # (Auto) 0.5x10^3/uL (0.0-1.1) 0.5x10^3/uL (0.0-1.1) Eosinophils # (Auto) 0.1x10^3/uL (0.0-0.7) 0.1x10^3/uL (0.0-0.7) Basophils # (Auto) 0.0x10^3/uL (0.0-0.2) 0.0x10^3/uL (0.0-0.2) Sodium Level 143mmol/L (136-145) 141mmol/L (136-145) Potassium Level 3.2mmol/L (3.5-5.1) 3.2mmol/L (3.5-5.1) Chloride Level 105mmol/L (98-107) 105mmol/L (98-107) Carbon Dioxide Level 27mmol/L (21-32) 27mmol/L (21-32) Anion Gap 11 (6-14) 9 (6-14) Blood Urea Nitrogen 15mg/dL (8-26) 13mg/dL (8-26) Creatinine 0.9mg/dL (0.7-1.3) 0.8mg/dL (0.7-1.3) Estimated GFR (Cockcroft-Gault) 102.5 117.4 Glucose Level 106mg/dL (70-99) 90mg/dL (70-99) Calcium Level 9.3mg/dL (8.5-10.1) 8.9mg/dL (8.5-10.1) Glucose (Fingerstick) 76mg/dL (70-99) 93mg/dL (70-99) Triglycerides Level 68mg/dL (0-150) Cholesterol Level 128mg/dL (0-200) LDL Cholesterol, Calculated 70mg/dL (0-100) VLDL Cholesterol, Calculated 14mg/dL (0-40) HDL Cholesterol 44mg/dL (40-60) Cholesterol/HDL Ratio 2.9 Test 07/17/16 10:41 07/17/16 16:27 Glucose (Fingerstick) 130mg/dL (70-99) 114mg/dL (70-99) Laboratory Tests Test 07/17/16 03:00 07/17/16 07:08 07/17/16 10:41 07/17/16 16:27 White Blood Count 4.9x10^3/uL (4.0-11.0) Red Blood Count 4.51x10^6/uL (4.30-5.70) Hemoglobin 12.7g/dL (13.0-17.5) Hematocrit 37.8% (39.0-53.0) Mean Corpuscular Volume 84fL (79-100) Mean Corpuscular Hemoglobin 28pg (25-35) Mean Corpuscular Hemoglobin Concent 34g/dL (31-37) Red Cell Distribution Width 14.5% (11.5-14.5) Platelet Count 205x10^3/uL (140-400) Neutrophils (%) (Auto) 46% (31-73) Lymphocytes (%) (Auto) 40% (24-48) Monocytes (%) (Auto) 11% (0-9) Eosinophils (%) (Auto) 3% (0-3) Basophils (%) (Auto) 1% (0-3) Neutrophils # (Auto) 2.3x10^3uL (1.8-7.7) Lymphocytes # (Auto) 2.0x10^3/uL (1.0-4.8) Monocytes # (Auto) 0.5x10^3/uL (0.0-1.1) Eosinophils # (Auto) 0.1x10^3/uL (0.0-0.7) Basophils # (Auto) 0.0x10^3/uL (0.0-0.2) Sodium Level 141mmol/L (136-145) Potassium Level 3.2mmol/L (3.5-5.1) Chloride Level 105mmol/L (98-107) Carbon Dioxide Level 27mmol/L (21-32) Anion Gap 9 (6-14) Blood Urea Nitrogen 13mg/dL (8-26) Creatinine 0.8mg/dL (0.7-1.3) Estimated GFR (Cockcroft-Gault) 117.4 Glucose Level 90mg/dL (70-99) Calcium Level 8.9mg/dL (8.5-10.1) Triglycerides Level 68mg/dL (0-150) Cholesterol Level 128mg/dL (0-200) LDL Cholesterol, Calculated 70mg/dL (0-100) VLDL Cholesterol, Calculated 14mg/dL (0-40) HDL Cholesterol 44mg/dL (40-60) Cholesterol/HDL Ratio 2.9 Glucose (Fingerstick) 93mg/dL (70-99) 130mg/dL (70-99) 114mg/dL (70-99) Medications Current Medications Aspirin (Ecotrin) 325 mg 1X ONCE PO Last administered on 07/16/16t 18:24; Start 07/16/16 at 18:15; Stop 07/16/16 at 18:16; Status DC Clopidogrel Bisulfate (Plavix) 75 mg 1X ONCE PO Last administered on 19:06; Start 07/16/16 at 19:00; Stop 07/16/16 at 19:01; Status DC Ondansetron HCl (Zofran) 4 mg PRN Q8HRS PRN IV NAUSEA/VOMITING; Start 07/16/16 at 18:45; Stop 07/16/16 at 19:17; Status DC Acetaminophen (Tylenol) 650 mg PRN Q4HRS PRN PO FEVER; Start 07/16/16 at 18:45 ; Stop 07/16/16 at 19:17; Status DC Atenolol (Tenormin) 25 mg DAILY PO Last administered on 07/17/16 10:07; Start 07/17/16 at 09:00 Atorvastatin Calcium (Lipitor) 40 mg QHS PO Last administered on 07/17/16 20: 04; Start 07/16/16 at 21:00 Dorzolamide/ Timolol (Cosopt) 1 drop BID OU Last administered on 07/17/16 20: 04; Start 07/16/16 at 21:00 Hydrochlorothiazide (Hydrodiuril) 25 mg DAILY PO Last administered on 10:07; Start 07/17/16 at 09:00 Acetaminophen/ Hydrocodone Bitart (Lortab 5/325) 1 tab PRN Q6HRS PRN PO PAIN; Start 07/16/16 at 19:15 Latanoprost (Xalatan) 1 drop QHS OU Last administered on 07/17/16 20:04; Start 07/16/16 at 21:00 Multivitamins/ Calcium (Thera M Plus) 1 tab DAILY PO Last administered on 10:08; Start 07/17/16 at 09:00 Clopidogrel Bisulfate (Plavix) 75 mg DAILYWBKFT PO Last administered on 10:07; Start 07/17/16 at 08:00 Acetaminophen (Tylenol) 650 mg PRN Q6HRS PRN PO MILD PAIN / TEMP; Start at 19:15 Ondansetron HCl (Zofran) 4 mg PRN Q6HRS PRN IV NAUSEA/VOMITING; Start 07/16/16 at 19:15 Hydralazine HCl (Apresoline) 10 mg PRN Q4HRS PRN IVP ELEVATED BP, SEE COMMENTS ; Start 07/16/16 at 19:15 Insulin Aspart (Novolog) 0-9 UNITS QIDACHS SQ ; Start 07/16/16 at 21:00 Dextrose 12.5 gm PRN Q15MIN PRN IV SEE COMMENTS; Start 07/16/16 at 19:15 Enoxaparin Sodium (Lovenox 40mg Syringe) 40 mg Q24H SQ Last administered on 20:04; Start 07/16/16 at 21:00 Potassium Chloride (Klor-Con) 40 meq 1X ONCE PO Last administered on t 12:22; Start 07/17/16 at 09:30; Stop 07/17/16 at 09:31; Status DC Active Scripts Active [place] 5-325 Tablet (Acetaminophen/Hydrocodone Bitart) 1 Each Tablet 1 Tab PO PRN Q6HRS PRN Reported Levothyroxine Sodium 100 Mcg Tablet 1 Tab PO DAILY Metformin Hcl 500 Mg Tablet 1 Tab PO BID Latanoprost 2.5 Ml Drops 1 Drop EACHEYE QHS Dorzolamide-Timolol Eye Drops (Dorzolamide Hcl/Timolol Maleat) 10 Ml Drops 1 Drop EACHEYE BID Atorvastatin Calcium 40 Mg Tablet 1 Tab PO DAILY Aspir 81 (Aspirin) 81 Mg Tablet. 1 Tab PO DAILY Daily Multiple Vitamin (Multivitamin) 1 Each Tablet 1 Each PO DAILY Hydrochlorothiazide Tablet (Hydrochlorothiazide) 25 Mg Tablet 25 Mg PO DAILY Atenolol 25 Mg Tablet 25 Mg PO DAILY Vitals/I & O Vital Sign - Last 24 Hours 07/16/16 07/17/16 07/17/16 07/17/16 23:13 03:23 07:00 08:00 Temp 97.7 97.0 97.7 97.7 97.0 97.7 Pulse 60 60 80 Resp 18 16 17 B/P 118/73 111/59 112/71 Pulse Ox 99 100 97 O2 Delivery Room Air Room Air Room Air Room Air 07/17/16 07/17/16 07/17/16 07/17/16 10:07 11:16 14:58 19:51 Temp 97.9 97.7 97.9 97.9 97.7 97.9 Pulse 80 75 85 54 Resp 17 17 20 B/P 112/71 105/59 105/75 114/75 Pulse Ox 98 98 99 O2 Delivery Room Air Room Air Room Air 07/17/16 20:00 O2 Delivery Room Air Intake and Output 07/16/16 07/16/16 07/17/16 15:00 23:00 07:00 Intake Total 720 ml Balance 720 ml NEPTALI CONNER MD Jul 17, 2016 21:18
[2016-07-17 23:34] VITALS: BP 118/64
[2016-07-18 03:13] VITALS: BP 105/62
[2016-07-18 06:17] LABS: BASO % 1 % (0-3); EOS % 3 % (0-3); HEMATOCRIT 40.2 % (39.0-53.0); HEMOGLOBIN 13.3 g/dL (13.0-17.5); LYMPH # 1.7 x10^3/uL (1.0-4.8); LYMPH % 38 % (24-48); MEAN CORPUSCULAR HEMOGLOBIN 28 pg (25-35); MEAN CORPUSCULAR HGB CONC 33 g/dL (31-37); MEAN CORPUSCULAR VOLUME 84 fL (79-100); MONO % 11 % (0-9); NEUT % 47 % (31-73); PLATELET COUNT 214 x10^3/uL (140-400); RED BLOOD COUNT 4.78 x10^6/uL (4.30-5.70); RED CELL DISTRIBUTION WIDTH 14.9 % (11.5-14.5); WHITE BLOOD COUNT 4.4 x10^3/uL (4.0-11.0)
[2016-07-18 06:37] LABS: CREATININE 0.8 mg/dL (0.7-1.3); GFR 117.4; POTASSIUM 3.6 mmol/L (3.5-5.1)
[2016-07-18] MEDS: INSULIN ASPART 300 UNITS/3 ML INSULN.PEN SQ SCH ×3 (07:30→16:30)
[2016-07-18] MEDS: HYDROCHLOROTHIAZIDE 25 MG TABLET PO SCH (08:34)
[2016-07-18] MEDS: MULTIVITAMIN with MINERAL TABLET. PO SCH (08:34)
[2016-07-18] MEDS: DORZOLAMIDE/TIMOLOL 2%/0.5% OPHTH SOLUTION 10ML BOTTLE. OU SCH (08:35)
[2016-07-18] MEDS: CLOPIDOGREL BISULFATE 75 MG TABLET PO SCH (08:35)
[2016-07-18] MEDS: ATENOLOL 25 MG TABLET PO SCH (08:35)
[2016-07-18 08:37] VITALS: BP 113/69
[2016-07-18 11:43] VITALS: BP 117/74
[2016-07-18] MEDS ORDERED: CLOP75TA PO (12:26)
[2016-07-18 15:05] VITALS: BP 115/68
--- NOTE | 2016-07-18 15:46 | PDOC3 ---
Discharge Summary [facility] Date of Admission: Jul 16, 2016 Discharge Date: Jul 18, 2016 Admitting Diagnosis 1. right arm/hand weakness, 2/2 ischemic stroke 2. dm2 3. htn 4. hld 5. glaucoma 6. hypokalemia Problems: Final Diagnosis Problems Medical Problems: (1) Right arm weakness Status: Acute CONSULTS neuro Brief Hospital Course Patient is a 66 year old male who presents with right upper extremity weakness that started about 4:30 this evening when he got home from work. he had little nausea before. He was taking a shower at 4.30pm, feels right arm weakness, especially right hand. He denies other neurologic symptoms, no vision hearing change, no numbness or headache. Now strength is better, but right hand still weak. head CT neg. takes baby asa. 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 Carotid US neg. Echo pending, either do it here and fu result as outpt or do as outpt. dc home with plavix. OT. dc time 35min General: Alert, Oriented X3, Cooperative Heart: Regular rate, Normal S1, Normal S2 Lungs: Clear, Wheezing Abdomen: Normal bowel sounds, Soft Extremities: No clubbing, No cyanosis Skin: No rashes Problems: Disposition home CONDITION AT DISCHARGE: Improved Diet regular Scheduled Atenolol (Atenolol) 25 MG PO DAILY (Reported) Atorvastatin Calcium (Atorvastatin Calcium) 1 TAB PO DAILY (Reported) Clopidogrel Bisulfate (Clopidogrel) 75 MG PO DAILYWBKFT Dorzolamide Hcl/Timolol Maleat (Dorzolamide-Timolol Eye Drops) 1 DROP EACHEYE BID (Reported) Hydrochlorothiazide (Hydrochlorothiazide Tablet ) 25 MG PO DAILY (Reported) Latanoprost (Latanoprost) 1 DROP EACHEYE QHS (Reported) Levothyroxine Sodium (Levothyroxine Sodium) 1 TAB PO DAILY (Reported) Metformin Hcl (Metformin Hcl) 1 TAB PO BID (Reported) Multivitamin (Daily Multiple Vitamin) 1 EACH PO DAILY (Reported) Scheduled PRN Hydrocodone/Apap 5-325 (Calvin 5-325 Tablet) 1 TAB PO PRN Q6HRS PRN PRN PAIN Discontinued Medications Aspirin (Aspir 81) 1 TAB PO DAILY (Reported) Follow Up neuro in 2 weeks TREESA BERNABE MD Jul 18, 2016 15:46
== END 2016-07-18 17:25 | disposition home health service (06) | DRG 65 ==
LOC: ER 17:20 → 6 SOUTH 18:10
PROVIDERS: ADMIT Internal Medicine; ATTEND Internal Medicine
DX: I63.9 Cerebral infarction, unspecified (principal); G81.91 Hemiplegia, unspecified affecting right dominant side; E11.9 Type 2 diabetes mellitus without complications; E78.5 Hyperlipidemia, unspecified; E87.6 Hypokalemia; H40.9 Unspecified glaucoma; I10 Essential (primary) hypertension; Z79.02 Long term (current) use of antithrombotics/antiplatelets; Z79.82 Long term (current) use of aspirin; Z82.3 Family history of stroke; Z83.3 Family history of diabetes mellitus; Z87.891 Personal history of nicotine dependence
CPT/HCPCS: 36415; 70450; 70551; 80048; 80061; 82947; 83036; 85027; 93005; 93880; J1650; J1815; 99285-25

== ENCOUNTER → 2017-07-06 | Outpatient (CLI) | payer BC, MEDICARE | END | disposition home or self-care (01) | LOC: PNCL 14:25 | DX: M51.16 Intervertebral disc disorders with radiculopathy, lumbar region (principal); M50.10 Cervical disc disorder with radiculopathy, unspecified cervical region; M25.512 Pain in left shoulder; R53.83 Other fatigue | CPT/HCPCS: G0463 ==

== ENCOUNTER → 2017-07-18 | Outpatient (CLI) | payer BC, MEDICARE ==
[~2017-07-18] MED LIST changes: -ASPI-482 PO; -ATEN25TA PO; -ATOR40TA59 PO; -DORZ10DR7 EACHEYE; -HYDR-971 PO; -HYDR25TA9 PO; +IOHEXOL 180 MG/ML 10 ML VIAL.; -LATA2.5D3 EACHEYE; -MULT1TAB97 PO; -SIMV5TAB PO; -VARE1TAB5 PO; +methylPREDNISolone ACETATE 40 MG/ML VIAL.; +methylPREDNISolone ACETATE 80 MG/ML VIAL.
== END | disposition home or self-care (01) ==
LOC: PNCL 13:59
DX: M50.123 Cervical disc disorder at C6-C7 level with radiculopathy (principal); M51.16 Intervertebral disc disorders with radiculopathy, lumbar region; E78.00 Pure hypercholesterolemia, unspecified; I10 Essential (primary) hypertension; E11.39 Type 2 diabetes mellitus with other diabetic ophthalmic complication; H40.9 Unspecified glaucoma; Z86.39 Personal history of other endocrine, nutritional and metabolic disease; Z87.39 Personal history of other diseases of the musculoskeletal system and connective tissue
CPT/HCPCS: 62321; J1030; J1040

== ENCOUNTER → 2017-12-19 | Outpatient (CLI) | payer BC | END | disposition home or self-care (01) | LOC: PNCL 13:13 | DX: M50.10 Cervical disc disorder with radiculopathy, unspecified cervical region (principal); M51.16 Intervertebral disc disorders with radiculopathy, lumbar region; M25.512 Pain in left shoulder; I10 Essential (primary) hypertension; E11.39 Type 2 diabetes mellitus with other diabetic ophthalmic complication; E78.5 Hyperlipidemia, unspecified; E78.00 Pure hypercholesterolemia, unspecified; E87.6 Hypokalemia | CPT/HCPCS: G0463 ==

== ENCOUNTER → 2018-01-23 | Outpatient (CLI) | payer BC ==
[~2018-01-23] MED LIST changes: +CONTRAST GIVEN. MC; -IOHEXOL 180 MG/ML 10 ML VIAL.; +IOHEXOL 300 MG/ML 100ML VIAL. IV; -methylPREDNISolone ACETATE 40 MG/ML VIAL.; -methylPREDNISolone ACETATE 80 MG/ML VIAL.
[2018-01-23 07:59] LABS: CREATININE 0.8 mg/dL (0.7-1.3)
== END | disposition home or self-care (01) ==
LOC: CT 07:36
DX: I73.9 Peripheral vascular disease, unspecified (principal); K57.30 Diverticulosis of large intestine without perforation or abscess without bleeding; I65.23 Occlusion and stenosis of bilateral carotid arteries
CPT/HCPCS: 36415; 75635; 82565; Q9967

== ENCOUNTER → 2018-01-25 | Outpatient (CLI) | payer BC ==
[~2018-01-25] MED LIST changes: -CONTRAST GIVEN. MC; +IOHEXOL 180 MG/ML 10 ML VIAL.; -IOHEXOL 300 MG/ML 100ML VIAL. IV; +LIDOCAINE 2% PF 2ML VIAL.; +methylPREDNISolone ACETATE 40 MG/ML VIAL.; +methylPREDNISolone ACETATE 80 MG/ML VIAL.
== END | disposition home or self-care (01) ==
LOC: PNCL 13:09
DX: M50.123 Cervical disc disorder at C6-C7 level with radiculopathy (principal); M51.16 Intervertebral disc disorders with radiculopathy, lumbar region; M19.012 Primary osteoarthritis, left shoulder; M79.1 Myalgia; I10 Essential (primary) hypertension; E78.00 Pure hypercholesterolemia, unspecified; E11.39 Type 2 diabetes mellitus with other diabetic ophthalmic complication; H40.9 Unspecified glaucoma; F17.200 Nicotine dependence, unspecified, uncomplicated; Z98.890 Other specified postprocedural states; Z79.84 Long term (current) use of oral hypoglycemic drugs; Z79.899 Other long term (current) drug therapy
CPT/HCPCS: 62321; J1030; J1040; J2001; Q9965

== ENCOUNTER → 2018-02-28 | Outpatient (CLI) | payer BC ==
[2018-02-28] VITALS (10 sets, daily range): BP systolic 118–140; BP diastolic 67–76
[~2018-02-28] VITALS: Ht 190.5 cm; Wt 92.5 kg
[~2018-02-28] MED LIST changes: +ALLO300T PO; +ASPI-482 PO; +ATEN25TA PO; +ATOR40TA59 PO; +CLOP75TA PO; +CONTRAST GIVEN. MC PRN; +DORZ10DR7 EACHEYE; +GABA-585 PO; +HEPARIN for ARTERIAL LINE 1,500 ML ONE; +HEPARIN for IV BOLUS 10,000 UNIT/10 ML VIAL. ONE; +HYDR-971 PO; +HYDR25TA9 PO; +IODIXANOL 320 MG/ML 100 ML VIAL. IART ONE; +IODIXANOL 320 MG/ML 100 ML VIAL. ONE; +IODIXANOL 320MG/ML 50ML VIAL. IART ONE; +IODIXANOL 320MG/ML 50ML VIAL. ONE; -IOHEXOL 180 MG/ML 10 ML VIAL.; +LATA2.5D3 EACHEYE; +LEVO100T5 PO; +LEVO50TA5 PO; -LIDOCAINE 2% PF 2ML VIAL.; +LIDOCAINE WITH 8.4% SOD BICARB 3 ML DISP.SYRIN. IJ ONE; +LIDOCAINE WITH 8.4% SOD BICARB 3 ML DISP.SYRIN. ONE; +METF500T16 PO; +MIDAZOLAM HCL/PF 5 MG/5 ML VIAL. IV ONE; +MIDAZOLAM HCL/PF 5 MG/5 ML VIAL. ONE; +MULT1TAB97 PO; +SIMV5TAB PO; +VARE1TAB5 PO; +fentaNYL PF VIAL 100 MCG/2 ML VIAL IV ONE; +fentaNYL PF VIAL 100 MCG/2 ML VIAL ONE; -methylPREDNISolone ACETATE 40 MG/ML VIAL.; -methylPREDNISolone ACETATE 80 MG/ML VIAL.
[2018-02-28 07:32] LABS: BASO % 0 % (0-3); EOS # 0.1 x10^3/uL (0.0-0.7); EOS % 3 % (0-3); LYMPH # 1.4 x10^3/uL (1.0-4.8); LYMPH % 36 % (24-48); MEAN CORPUSCULAR HEMOGLOBIN 29 pg (25-35); MEAN CORPUSCULAR HGB CONC 34 g/dL (31-37); MEAN CORPUSCULAR VOLUME 85 fL (79-100); MONO # 0.5 x10^3/uL (0.0-1.1); MONO % 13 % (0-9); NEUT % 48 % (31-73); PLATELET COUNT 194 x10^3/uL (140-400); RED BLOOD COUNT 4.81 x10^6/uL (4.30-5.70); RED CELL DISTRIBUTION WIDTH 14.6 % (11.5-14.5); WHITE BLOOD COUNT 4.1 x10^3/uL (4.0-11.0)
[2018-02-28 07:41] LABS: PROTHROMBIN TIME PATIENT 12.3 SEC (11.7-14.0)
[2018-02-28 07:44] LABS: CALCIUM 8.9 mg/dL (8.5-10.1); CREATININE 0.8 mg/dL (0.7-1.3); POTASSIUM 3.5 mmol/L (3.5-5.1)
--- NOTE | 2018-02-28 10:22 | PDOC ---
MODERATE SEDATION ASSESSMENT RISKS/ALTERNATIVES Risks/Alternatives Risks and alternatives of this type of sedation and procedure discussed with: RISK/ALTERNATIVES: Patient H & P ON CHART H & P H & P on chart and reviewed for co-morbid conditions and appropriate labs. H&P ON CHART: Yes STATUS PREG STATUS ASSESSED: Yes MEDS/ALLERGIES REVIEWED Meds/Allergies Reviewed Medications and Allergies including time and route of recently administered narcotics and sedatives. MEDS/ALLERGIES REVIEWED: Yes ASA RATING ASA RATING: II AIRWAY ASSESSMENT Airway Assessment Airway patency, oral function limitations, presence of caps, crowns, dentures, partials, and ability to extend neck assessed. AIRWAY ASSESSMENT: Yes MALLAMPATI SCORE MALLAMPATI SCORE: II PRE-SEDATION ASSESSMENT PRE-SEDATION ASSESSMENT: Yes KINDRA LANGSTON MD Feb 28, 2018 10:22
--- NOTE | 2018-03-02 10:55 | RAD ---
Bilateral lower extremity angiography February 28, 2018 Indication: Left lower extremity pain, claudication. CT angiography previously performed demonstrates popliteal occlusion on the left. Symptoms are greater on the left. Discussion: The risks and benefits of the procedure were discussed the patient. Informed consent was obtained. Timeout procedure was performed. The right groin was prepped and draped using sterile barrier technique. Ultrasound evaluation demonstrates patency of the right common femoral vein. Using accommodation fluoroscopic and ultrasound guidance the right common femoral artery was accessed using micropuncture technique. A 5 Czech vascular sheath was placed. Angiography was performed demonstrating common femoral puncture. The aortic bifurcation was crossed. Angiograms left lower extremity were performed. Left common femoral artery is patent. Left profunda artery is patent. Left superficial femoral artery demonstrates a 50% stenosis in its midportion. Diffuse irregularity throughout the mid SFA with densely calcified plaque is noted. The SFA is patent to the adductor canal. The [id number] popliteal artery is patent. Just above the knee joint there is complete chronic occlusion of the popliteal artery. Multiple prominent geniculate collaterals are noted. There is reconstitution of the posterior tibial artery in the mid leg. Some retrograde filling is noted. Reconstitution of the peroneal artery is seen in the proximal leg. The anterior tibial artery is nonvisualized. The posterior tibial artery is the dominant artery supplying the foot. The lateral plantar artery is patent and is the dominant blood supply to the more distal foot. Possible very minimal reconstitution of the dorsalis pedis artery is seen. These findings were discussed with Dr. Ramirez. Given the extent of superficial femoral artery disease, the patient would likely benefit from a more proximal bypass procedure. Therefore no endovascular intervention was performed. Right lower extremity angiography was performed through the sheath. The right common femoral artery is patent. The right profunda artery is patent. Mild nonflow limiting irregularity is seen to the mid right SFA. The right popliteal artery is patent above the knee. There is a high-grade stenosis at the junction of the popliteal artery and anterior tibial artery. The anterior tibial artery is then occluded. Posterior tibial artery appears to be chronically occluded. The peroneal artery is the dominant blood supply to the right foot and is patent to the ankle. The right common femoral vascular sheath was removed, using a Mynx device to achieve hemostasis. No immediate complications were identified. Sterile dressings were applied. Fluoroscopy time : 5.3 min Dose area product: 73 Gycm2 The procedure was performed under conscious sedation including continuous cardiopulmonary monitoring via dedicated sedation nurse. [id number] sedation time 45 minutes Impression: 1. 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 2. 50% narrowing of the mid left SFA with longer segment diffuse heavily calcified plaque. 3. High-grade stenosis at the junction of the right distal popliteal artery and anterior tibial artery. Subsequent occlusion of the anterior tibial artery. Occlusion of the posterior tibial artery. Single vessel runoff to the right ankle via the peroneal artery.
== END ==
LOC: INTRAD 06:32
DX: I70.203 Unspecified atherosclerosis of native arteries of extremities, bilateral legs (principal); I10 Essential (primary) hypertension; E11.39 Type 2 diabetes mellitus with other diabetic ophthalmic complication; H40.9 Unspecified glaucoma; E78.00 Pure hypercholesterolemia, unspecified; M19.012 Primary osteoarthritis, left shoulder; Z79.899 Other long term (current) drug therapy; Z79.84 Long term (current) use of oral hypoglycemic drugs; Z87.891 Personal history of nicotine dependence; Z98.890 Other specified postprocedural states
CPT/HCPCS: 36247; 36415; 75716; 76937; 80048; 85025; 85610; 85730; C1760; C1769; C1892; C1894; G0269; J1644; J2250; J3010; Q9967; 36246; 99152; 99153

== ENCOUNTER → 2018-09-18 | Outpatient (CLI) | payer MEDICARE ==
[2018-02-28 13:00] VITALS: BP 122/68
[~2018-09-18] MED LIST changes: -CONTRAST GIVEN. MC PRN; -HEPARIN for ARTERIAL LINE 1,500 ML ONE; -HEPARIN for IV BOLUS 10,000 UNIT/10 ML VIAL. ONE; +HYDR-2145 PO; +HYDR-3164 PO; -HYDR-971 PO; -HYDR25TA9 PO; -IODIXANOL 320 MG/ML 100 ML VIAL. IART ONE; -IODIXANOL 320 MG/ML 100 ML VIAL. ONE; -IODIXANOL 320MG/ML 50ML VIAL. IART ONE; -IODIXANOL 320MG/ML 50ML VIAL. ONE; -LIDOCAINE WITH 8.4% SOD BICARB 3 ML DISP.SYRIN. IJ ONE; -LIDOCAINE WITH 8.4% SOD BICARB 3 ML DISP.SYRIN. ONE; -MIDAZOLAM HCL/PF 5 MG/5 ML VIAL. IV ONE; -MIDAZOLAM HCL/PF 5 MG/5 ML VIAL. ONE; -fentaNYL PF VIAL 100 MCG/2 ML VIAL IV ONE; -fentaNYL PF VIAL 100 MCG/2 ML VIAL ONE
--- NOTE | 2018-09-18 21:07 | PAIN ---
DATE OF SERVICE: 09/18/2018 PROGRESS NOTE FOR PAIN CLINIC DIAGNOSES: 1. Cervical radiculopathy with cervical degenerative disk disease. 2. Lumbar radiculopathy with lumbar degenerative disk disease. 3. Left shoulder joint pain. 4. Myofascial pain. HISTORY OF PRESENT ILLNESS: The patient is a 68-year-old male who returns for followup, last seen on 01/25/2018. The patient had cervical epidural steroid injection at that time. He did very well with about 75% improvement for many months. The patient reports the pain is beginning to return in the base of the neck and shoulders, but his chief complaint is low back and bilateral lower extremity pain. The patient reports the pain is radiating into posterior gluteus, posterior thighs, posterolateral thighs, lateral anterior thighs, medial lower legs bilaterally, essentially equal right and left, worse with walking and standing. It is beginning to awaken him from sleep at night, but only occasionally. The patient reports it is worse with standing or sitting for prolonged periods in the low back and bilateral lower extremities. The patient reports it is aching and tight across the back with shooting pain, also becoming more cramping and burning in sensation with radiation into the lower extremities. It is becoming more constant and more severe. The patient reports no loss of motor function. No bowel or bladder incontinence. Reports no new changes. Initially, he was doing much better with doing work activities, household activities, distance walking and sleeping better at night. Again, his pain is returning now. PHYSICAL EXAMINATION: VITAL SIGNS: The patient's blood pressure is 132/77, pulse 67, respirations 18, temperature 98.3 degrees Fahrenheit, height is 6 feet 3 inches, weight is 215 pounds. GENERAL: The patient is awake, alert, oriented, appropriate, very pleasant demeanor. HEENT: Shows normocephalic, atraumatic. Extraocular movements are intact and symmetrical. Oral cavity: Mucous membranes are moist and pink. Dentition is intact. NECK: Shows anterior throat supple without palpable lymphadenopathy noted. Swallow reflex is symmetrical. CHEST: Shows normal on inspection. Breath sounds are clear to auscultation bilaterally. HEART: Shows S1, S2 clear. No murmurs auscultated. ABDOMEN: Soft, nontender, nondistended. No palpable organomegaly is noted. No rebound or guarding demonstrated. BACK: Shows spine grossly in the midline. Normal-appearing thoracic kyphosis, cervical lordotic curvature and lumbar lordotic curvature. Lumbar paraspinous muscle shows symmetrical on inspection. On palpation, he has some moderate tenderness diffusely without significant radiation. The patient has good rotational motion of lumbar spine, both laterally as well as extension and flexion without significant pain reported. EXTREMITIES: The patient's lower extremities show deep tendon reflexes at 2+ patellar and 1+ tendo calcaneus tendons, are equal. Motor exam is strong with 5/5 dorsiflexion and extension as well as quadriceps and hamstring flexion. Peripheral pulses are 1+ posterior tibia. No peripheral edema is noted bilaterally. Upper extremities show deep tendon reflexes at 1+ in the biceps and triceps tendons. 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 Peripheral pulses are 2+ radial. No peripheral edema is noted as well. Options were discussed with the patient. The patient's old chart was reviewed as his current medication regimen updated. Current review of systems updated today as well. We will preauthorize the patient for a lumbar epidural steroid injection in his bilateral radicular pain in the L4-L5 dermatomal distribution. The patient will continue to do strengthening and stretching exercises. He has been doing for the last 9 months or so. We will also try Medrol Dosepak. The patient was given instructions as well as side effects to be aware of with the medication. We will wait for preauthorization. Also, we will check with the patient's primary care physician to hold his Plavix for 7 days prior to return for lumbar epidural steroid injection at the L4-L5 level for L4-L5 bilateral radiculopathy. ROSCOE HUNT MD DR: CARRINGTON/edmond JOB#: [id number] / [id number]
== END | disposition home or self-care (01) ==
LOC: PNCL 13:29
PROVIDERS: ATTEND Anesthesiology
DX: M50.10 Cervical disc disorder with radiculopathy, unspecified cervical region (principal); M51.16 Intervertebral disc disorders with radiculopathy, lumbar region; M25.512 Pain in left shoulder; M79.18 Myalgia, other site
CPT/HCPCS: G0463

== ENCOUNTER → 2018-10-03 | Outpatient (CLI) | payer MEDICARE ==
[2018-02-28 13:00] VITALS: BP 122/68
[~2018-10-03] MED LIST changes: +IOHEXOL 180 MG/ML 10 ML VIAL. ONE; +methylPREDNISolone ACETATE 40 MG/ML VIAL. ONE; +methylPREDNISolone ACETATE 80 MG/ML VIAL. ONE
--- NOTE | 2018-10-04 04:02 | PAIN ---
DATE OF SERVICE: 10/03/2018 PROGRESS NOTE FOR PAIN CLINIC DIAGNOSES: 1. Lumbar radiculopathy with lumbar degenerative disk disease. 2. Cervical radiculopathy with cervical degenerative disk disease. 3. Left shoulder joint pain. 4. Myofascial pain. HISTORY OF PRESENT ILLNESS: The patient is a 68-year-old male, who returns for followup status post initial medication evaluation and preauthorization for a lumbar epidural steroid injection. The patient is off his Plavix now for 7 days and has received preauthorization would like to proceed. The patient reports still significant pain in low back, bilateral lower extremities, posterior gluteus, posterior lateral thigh, lateral anterior thigh, medial thigh, medial lower legs, worse with walking, standing, changing positions, better with sitting or lying down. He reports it is better with sitting and is not waking him from sleep at night, but reports it is a tight pain, shooting and radiating, becoming more constant. The patient reports it is 9 on a scale of 10 at its worst, 8 on average, 8 at its least and is 8 today. The patient reports no new motor or sensory deficits, no new bowel or bladder incontinence or other complaints. PHYSICAL EXAMINATION: VITAL SIGNS: The patient's blood pressure 133/81, pulse 63, respirations 18, temperature is 98.1 degrees Fahrenheit. Height is 6 feet 3 inches and weight is 212 pounds. GENERAL: The patient is awake, alert, oriented, appropriate, very pleasant demeanor. HEENT: Head is normocephalic, atraumatic. Extraocular movements are intact and symmetrical. Oral cavity, mucous membranes are moist and pink. Dentition is intact. NECK: Shows anterior throat supple without palpable lymphadenopathy noted. Swallow reflex symmetrical. CHEST: Shows normal on inspection. Breath sounds clear to auscultation bilaterally. HEART: Shows S1, S2 clear. No murmurs auscultated. ABDOMEN: Soft, nontender, nondistended. No palpable organomegaly is noted. No rebound or guarding demonstrated. BACK: Shows spine grossly in the midline. Normal appearing thoracic kyphosis, cervical lordotic curvature and lumbar lordotic curvature. Lumbar paraspinous muscle shows symmetrical on inspection, on palpation shows some moderate tenderness diffusely, but only diffusely without radiation. The patient has good rotational motion of lumbar spine, both laterally as well as extension and flexion without difficulty. EXTREMITIES: The patient's lower extremities show deep tendon reflexes 1+ in the patellar and tendo-calcaneus tendons. Motor exam is strong with 5/5 dorsiflexion, extension, quadriceps and hamstring flexion and symmetrical. Peripheral pulses are 1+ posterior tibial. No peripheral edema is noted bilaterally. Options were discussed with the patient. The patient's old chart was reviewed as his current medication regimen updated. Current review of systems updated today as well. We will proceed with a lumbar epidural steroid injection today with fluoroscopic guidance. Risks were again discussed including, but not limited to bleeding, infection, possibility of epidural hematoma, subsequent neurological compromise, dural puncture, headaches, spinal cord and/or nerve damage, side effects of steroid medication and poor results regarding pain control. The patient understands and wished to proceed. The patient to return to clinic in approximately 2 weeks for followup. He was counseled on return appointment, activity level and side effects to be aware of. The patient also has significant pain in the base of the neck and upper extremities with radiation, worse on the left than the right in the upper extremities. He has had cervical epidural steroid injections in the past with very good results, most recently 01/25/2018. The patient reports the pain is returning now, still significant degenerative disk disease changes and some numbness and tingling into the left greater than right hand as well as some pain in the base of the neck and shoulder. The patient would like to be preauthorized for a cervical epidural steroid injection as well. We will attempt preauthorization for this as well. He has done very well with these in the past, most recent cervical epidural steroid injection he had in January of last year with a 90% improvement for approximately 2 months after the injection. The patient will return to clinic in approximately 2 weeks and we will plan on cervical epidural steroid injection and preauthorize at that time. DIAGNOSES: Lumbar radiculopathy with lumbar degenerative disk disease. PROCEDURES: Lumbar epidural steroid injection, translaminar approach at L4-L5 level using C-arm fluoroscopic guidance under sterile prep and drape using local anesthetic. MEDICATION INJECTED: A total of 120 mg Depo-Medrol plus 10 mL of preservative-free normal saline and 2 mL of contrast. CONDITION AT DISCHARGE: Stable. The patient tolerated the procedure well, had no complications. ROSCOE HUNT MD DR: Torres JOB#: [id number] / [id number]
== END | disposition home or self-care (01) ==
LOC: PNCL 13:42
PROVIDERS: ATTEND Anesthesiology
DX: M51.16 Intervertebral disc disorders with radiculopathy, lumbar region (principal); M50.10 Cervical disc disorder with radiculopathy, unspecified cervical region; M79.18 Myalgia, other site; M25.512 Pain in left shoulder
CPT/HCPCS: 62323; J1030; J1040; Q9965

== ENCOUNTER → 2018-10-17 | Outpatient (CLI) | payer MEDICARE ==
[2018-02-28 13:00] VITALS: BP 122/68
--- NOTE | 2018-10-18 04:22 | PAIN ---
DATE OF SERVICE: 10/17/2018 DIAGNOSES: 1. Cervical radiculopathy with cervical degenerative disk disease. 2. Lumbar radiculopathy with lumbar degenerative disk disease. 3. Left shoulder joint pain. HISTORY OF PRESENT ILLNESS: The patient is a 68-year-old male, who returns for followup status post lumbar epidural steroid injection x 1. The patient reports about 50% improvement in his back and hips, but still wearing off. He notes it is mainly when he is climbing up hills or walking up a steep grade with pain in the low back and hips, but it is beginning to come back to some extent, but has improved about 50%. The patient reports his main complaint today is his neck and the left upper extremity pain. We had discussed this on his last visit and has been preauthorized for a cervical epidural steroid injection today as he has done well with those in the past. The patient reports no new motor or sensory deficits, no new changes. The patient rates his pain as 8 on a scale of 10 at all times, average, worst and least and is an 8 today as well. The patient reports it is aching, dull, shooting pain, mostly in the left arm, posterior shoulder, posterior triceps, into the forearm and elbow as well in the left hand. The patient reports no new changes. No loss of function, sleeping better at night. Points to his back, he says feeling better. Otherwise, no new changes. PHYSICAL EXAMINATION: VITAL SIGNS: The patient's blood pressure 142/89, pulse 70, respirations 18, temperature 98.4 degrees Fahrenheit, height is 6 feet 3 inches, weight is 215 pounds. GENERAL: The patient is awake, alert, oriented, appropriate, very pleasant demeanor. HEENT: Shows normocephalic, atraumatic. Extraocular movements are intact and symmetrical. Oral cavity: Mucous membranes moist and pink. Dentition is intact. NECK: Shows anterior throat supple without palpable lymphadenopathy noted. Swallow reflex symmetrical. CHEST: Shows normal on inspection. Breath sounds are clear to auscultation bilaterally. HEART: Shows S1, S2 clear. No murmurs auscultated. ABDOMEN: Soft, nontender, nondistended. No palpable organomegaly is noted. No rebound or guarding demonstrated. BACK: Shows spine grossly in the midline, normal-appearing cervical lordotic curvature, thoracic kyphotic curvature and lumbar lordotic curvature. Cervical paraspinous musculature shows symmetrical on inspection. On palpation shows some moderate tenderness diffusely in the middle and lower distribution of the paraspinous muscles of the cervical distribution, but without significant radiation. The patient has good rotational motion of the cervical spine, both laterally greater than 45 degrees, closer to 90 degrees right and left, as well as full extension and flexion without significant pain or tenderness as well. The patient's low back shows lumbar paraspinous, which is symmetrical on inspection. On palpation shows some moderate tenderness diffusely, but only diffusely without radiation. The patient shows good rotational motion of the lumbar spine as well, both laterally greater than 10 degrees right and left, as well as extension greater than 10 degrees, forward flexion 45 degrees without significant pain reported. EXTREMITIES: Show upper extremity deep tendon reflexes at 2+ in the biceps and triceps tendons. Motor exam is strong with set decorator strength rated at 5/5 and equal. Peripheral pulses are 2+ radial distribution. No peripheral edema is noted. Options discussed with the patient. The patient's old chart was reviewed as was his current medication regimen updated. Current review of systems updated today as well. We will proceed with a cervical epidural steroid injection today with fluoroscopic guidance. Risks were again discussed including, but not limited to bleeding, infection, possibility of epidural hematoma, subsequent neurological compromise, dural puncture, headaches, spinal cord and/or nerve damage, side effects of steroid medication and poor results regarding pain control. The patient understands and wished to proceed. The patient will return to the clinic in approximately 2 weeks for followup, was counseled on return appointment, activity level and side effects to be aware of. DIAGNOSIS: Cervical radiculopathy with cervical degenerative disk disease. PROCEDURE: Cervical epidural steroid injection, translaminar approach C6-C7 level using C-arm fluoroscopic guidance under sterile prep and drape using local anesthetic. MEDICATION INJECTED: A total of 120 mg Depo-Medrol plus 10 mL of preservative-free saline and 2 mL of Isovue for contrast. CONDITION AT DISCHARGE: Stable. The patient tolerated the procedure well, had no complications. ROSCOE HUNT MD DR: CARRINGTON/edmond JOB#: [id number] / [id number]
== END | disposition home or self-care (01) ==
LOC: PNCL 13:53
PROVIDERS: ATTEND Anesthesiology
DX: M50.123 Cervical disc disorder at C6-C7 level with radiculopathy (principal); M51.16 Intervertebral disc disorders with radiculopathy, lumbar region
CPT/HCPCS: 62321; J1030; J1040; Q9965

== ENCOUNTER → 2019-01-24 | Outpatient (CLI) | payer MEDICARE ==
[2018-02-28 13:00] VITALS: BP 122/68
[~2019-01-24] MED LIST changes: -IOHEXOL 180 MG/ML 10 ML VIAL. ONE; -methylPREDNISolone ACETATE 40 MG/ML VIAL. ONE; -methylPREDNISolone ACETATE 80 MG/ML VIAL. ONE
--- NOTE | 2019-01-24 13:06 | KCIC ---
STUDY: MRI of the left shoulder without contrast INDICATION: Left shoulder pain and limited range of motion. COMPARISON: No prior cross-sectional imaging of the left shoulder is available for comparison. TECHNIQUE: Multiplanar MR imaging of the left shoulder performed without the use of intravenous or intra-articular contrast. FINDINGS: AC joint: Moderate/severe AC joint arthrosis with capsular hypertrophy and some small inferiorly directed spurs off the distal clavicle as well as off the acromion, image 15 series 5. Fluid is present within the subacromial subdeltoid bursa. Rotator cuff: Full-thickness, full-width tearing of both the supraspinatus and infraspinatus with severe tendinosis of the retracted tendon stumps. There is retraction medial to the level of the glenohumeral joint. The teres minor remains intact. Tendinosis of the subscapularis. Advanced atrophy/fatty infiltration of the supraspinatus and infraspinatus muscle bellies. Teres minor and subscapularis muscular bulk is maintained. Labrum: Areas of labral degeneration as well as degenerative tearing at the superior aspect. Long head biceps tendon: Severe intra-articular long head biceps tendinosis as well as interstitial tearing which extends to the biceps-labral anchor, image 13 series 6. Cartilage: Chondral loss most obvious at the superior humeral head, inferomedial humerus as well as throughout the majority of the inferior half of the glenoid. Bones: No acute fracture or aggressive marrow signal abnormality. Scattered areas of degenerative marrow signal change to include edema of the acromial undersurface in keeping with the diffuse rotator cuff tearing. Miscellaneous: Shoulder joint effusion. No axillary adenopathy. Impression: 1. Extensive full-thickness/full-width tearing of the supraspinatus and infraspinatus with severe tendinosis of the retracted tendon stumps which are located medial to the glenohumeral joint. Associated advanced atrophy/fatty infiltration of the supraspinatus and infraspinatus. 2. Subscapularis tendinosis. 3. Degenerative tearing of the superior labrum. 4. Severe intra-articular long head biceps tendinosis as well as interstitial tearing which extends to the biceps-labral anchor. 5. Multifocal chondral loss involving the humeral head and glenoid. 6. Moderate/severe AC joint arthrosis with inferiorly directed spurring. 7. Shoulder joint effusion. Electronically signed by: RITESH PERKINS MD (01/24/2019 1:03 PM) [id number]
== END | disposition home or self-care (01) ==
LOC: KCIC MRI 09:24
PROVIDERS: ATTEND Orthopaedic Surgery
DX: S46.012A Strain of muscle(s) and tendon(s) of the rotator cuff of left shoulder, initial encounter (principal); S43.492A Other sprain of left shoulder joint, initial encounter; M19.012 Primary osteoarthritis, left shoulder; M89.312 Hypertrophy of bone, left shoulder; M25.412 Effusion, left shoulder; X58.XXXA Exposure to other specified factors, initial encounter; Y93.89 Activity, other specified; Y92.89 Other specified places as the place of occurrence of the external cause; Y99.8 Other external cause status
CPT/HCPCS: 73221

== ENCOUNTER → 2019-05-28 | Outpatient (CLI) | payer MEDICARE ==
[2018-02-28 13:00] VITALS: BP 122/68
[~2019-05-28] MED LIST changes: +LEVO75TA5 PO
--- NOTE | 2019-05-28 11:11 | NUR ---
Called Dr Jolly's office for recent HgbA1c results, to check if its okay to stop his plavix, and to see if he needs an appt for medical clearance. Tiki to send recent HgbA1c and check with Dr Mcgovern on stopping the plavix. Patient does need to be seen in the office for medical clearance.
--- NOTE | 2019-05-28 11:49 | EKG ---
[facility] [address] [place] [id number] Test Date: 2019-05-28 Test Time: 11:47:54 Pat Name: VIOLETTE RIDLEY Department: Room: Gender: M [employer]rier: : 1950 Requested By: AVIS LAM Order Number: [id number] Reading MD: Anson Cueto Measurements Intervals [place] Rate: 49 P: 26 NE: 170 QRS: 5 QRSD: 90 T: 21 QT: 420 QTc: 382 Interpretive Statements SINUS BRADYCARDIA MILD NONSPECIFIC ST-T WAVE CHANGES. Electronically Signed On 05-30-2019 9:37:56 KILN DOOR REPAIRER by Anson Cueto
[2019-05-28 12:41] LABS: BASO % 1 % (0-3); EOS # 0.1 x10^3/uL (0.0-0.7); EOS % 1 % (0-3); HEMATOCRIT 39.9 % (39.0-53.0); HEMOGLOBIN 13.3 g/dL (13.0-17.5); LYMPH % 32 % (24-48); MEAN CORPUSCULAR HEMOGLOBIN 29 pg (25-35); MEAN CORPUSCULAR HGB CONC 33 g/dL (31-37); MEAN CORPUSCULAR VOLUME 86 fL (79-100); MONO # 0.5 x10^3/uL (0.0-1.1); MONO % 8 % (0-9); NEUT # 3.6 x10^3/uL (1.8-7.7); NEUT % 58 % (31-73); PLATELET COUNT 231 x10^3/uL (140-400); RED BLOOD COUNT 4.63 x10^6/uL (4.30-5.70); RED CELL DISTRIBUTION WIDTH 14.9 % (11.5-14.5); WHITE BLOOD COUNT 6.3 x10^3/uL (4.0-11.0)
[2019-05-28 12:47] LABS: CALCIUM 8.9 mg/dL (8.5-10.1); CREATININE 0.9 mg/dL (0.7-1.3); GFR 101.5; POTASSIUM 3.5 mmol/L (3.5-5.1)
[2019-05-28 12:49] LABS: PROTHROMBIN TIME PATIENT 12.4 SEC (11.7-14.0)
--- NOTE | 2019-05-28 16:18 | RAD ---
AP and Lateral Views of the Chest 05/28/2019 10:57 AM Indication: Preoperative Comparison: None Findings: No pneumothorax or pleural effusion is seen. Consolidative infiltrate is identified. Blebs are present. Size normal. No acute osseous changes are seen. IMPRESSION: No radiographic evidence of acute cardiopulmonary process. Electronically signed by: Oswaldo Francois MD (05/28/2019 4:15 PM) [id number]
== END | disposition home or self-care (01) ==
LOC: SURGPAT 10:09
PROVIDERS: ATTEND Orthopaedic Surgery
DX: Z01.818 Encounter for other preprocedural examination (principal); M12.822 Other specific arthropathies, not elsewhere classified, left elbow; R91.8 Other nonspecific abnormal finding of lung field; R00.1 Bradycardia, unspecified
CPT/HCPCS: 36415; 71046; 80048; 82040; 82306; 85025; 85610; 85651; 85730; 87641; 93005